=== PATIENT | female | born 1960 | race African-American/Black ===

== ENCOUNTER 2019-11-17 12:55 | Inpatient (IN) | payer OTHER ==
--- NOTE | 2019-11-17 13:13 | ED ---
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 She denies any overt fevers chills or sweats at this time is cough and exertional dyspnea and dyspnea at rest. She has no known history of heart or lung disease. No other major medical issues except fibromyalgia. She is a nonsmoker. He does admit she has many much last week. She had noticed her pulse ox was high 80s approximately 88 at home per [facility] this did improve to 98 on 3 L of oxygen. She also has some nausea. His blood pressure was 90/50 she was given small amount of IV fluid a corrected to 110/70 MD Complaint: shortness of breath, cough - Related Data Allergies Allergy/AdvReac Type Severity Reaction Status Date / Time No Known Allergies Allergy Verified 11/17/19 13:07 Review of Systems ROS Statement: Those systems with pertinent positive or pertinent negative responses have been documented in the HPI. ROS Other: All systems not noted in ROS Statement are negative. General Exam - General Exam Comments Initial Comments: This is a well-developed asthenic appearing female who is awake alert oriented 3 General appearance: alert, in no apparent distress Head exam: Present: atraumatic, normocephalic, normal inspection Eye exam: Present: normal appearance, PERRL, EOMI. Absent: scleral icterus, conjunctival injection, periorbital swelling ENT exam: Present: normal exam, mucous membranes moist Neck exam: Present: normal inspection. Absent: tenderness, meningismus, lymphadenopathy Respiratory exam: Present: normal lung sounds bilaterally. Absent: respiratory distress, wheezes, rales, rhonchi, stridor Cardiovascular Exam: Present: regular rate, normal rhythm, normal heart sounds. Absent: systolic murmur, diastolic murmur, rubs, gallop, clicks GI/Abdominal exam: Present: soft, normal bowel sounds. Absent: distended, tenderness, guarding, rebound, rigid Extremities exam: Present: normal inspection, full ROM, normal capillary refill. Absent: tenderness, pedal edema, joint swelling, calf tenderness Back exam: Present: normal inspection Neurological exam: Present: alert, oriented X3, CN II-XII intact Psychiatric exam: Present: normal affect, normal mood Skin exam: Present: warm, dry, intact, normal color. Absent: rash Course Vital Signs 11/17/19 11/17/19 11/17/19 13:07 13:20 13:35 Temperature 100.4 F H Pulse Rate 85 74 Respiratory 20 20 18 Rate Blood Pressure 111/78 105/63 O2 Sat by Pulse 97 95 Oximetry Medical Decision Making - Medical Decision Making I did review the materials the imaging as well as the lab work. The patient's lab tests from the elbow department was reviewed and is positive for covid-19. I did discuss the case with Dr. Nick the patient will be admitted with consultation by infectious disease. Patient is maintained her respiratory status at this time. - Lab Data Result diagrams: 11/17/19 13:17 11/17/19 13:17 Lab Results 11/17/19 11/17/19 11/17/19 Range/Units 13:17 13:17 13:17 WBC 4.6 (3.8-10.6) k/uL RBC 4.65 (3.80-5.40) m/uL Hgb 13.2 (11.4-16.0) gm/dL Hct 41.6 (34.0-46.0) % MCV 89.5 (80.0-100.0) fL MCH 28.4 (25.0-35.0) pg MCHC 31.7 (31.0-37.0) g/dL RDW 12.3 (11.5-15.5) % Plt Count 178 (150-450) k/uL Neutrophils % 70 % Lymphocytes % 22 % Monocytes % 5 % Eosinophils % 0 % Basophils % 0 % Neutrophils # 3.2 (1.3-7.7) k/uL Lymphocytes # 1.0 (1.0-4.8) k/uL Monocytes # 0.2 (0-1.0) k/uL Eosinophils # 0.0 (0-0.7) k/uL Basophils # 0.0 (0-0.2) k/uL PT 9.4 (9.0-12.0) sec INR 0.9 (<1.2) APTT 27.0 (22.0-30.0) sec D-Dimer 0.72 H (<0.60) mg/L FEU Sodium 130 L (137-145) mmol/L Potassium 3.9 (3.5-5.1) mmol/L Chloride 95 L (98-107) mmol/L Carbon Dioxide 26 (22-30) mmol/L Anion Gap 9 mmol/L BUN 11 (7-17) mg/dL Creatinine 0.85 (0.52-1.04) mg/dL Est GFR (CKD-EPI)AfAm 86 (>60 ml/min/1.73 sqM) Est GFR (CKD-EPI)NonAf 75 (>60 ml/min/1.73 sqM) Glucose 99 (74-99) mg/dL Plasma Lactic Acid Maurice (0.7-2.0) mmol/L Calcium 8.8 (8.4-10.2) mg/dL Magnesium 2.1 (1.6-2.3) mg/dL Total Bilirubin 0.6 (0.2-1.3) mg/dL AST 76 H (14-36) U/L ALT 42 H (4-34) U/L Alkaline Phosphatase 69 (38-126) U/L Lactate Dehydrogenase 669 H (313-618) U/L C-Reactive Protein 19.0 H (<10.0) mg/L Total Protein 7.0 (6.3-8.2) g/dL Albumin 3.8 (3.5-5.0) g/dL 11/17/19 Range/Units 13:17 WBC (3.8-10.6) k/uL RBC (3.80-5.40) m/uL Hgb (11.4-16.0) gm/dL Hct (34.0-46.0) % MCV (80.0-100.0) fL MCH (25.0-35.0) pg MCHC (31.0-37.0) g/dL RDW (11.5-15.5) % Plt Count (150-450) k/uL Neutrophils % % Lymphocytes % % Monocytes % % Eosinophils % % Basophils % % Neutrophils # (1.3-7.7) k/uL Lymphocytes # (1.0-4.8) k/uL Monocytes # (0-1.0) k/uL Eosinophils # (0-0.7) k/uL Basophils # (0-0.2) k/uL PT (9.0-12.0) sec INR (<1.2) APTT (22.0-30.0) sec D-Dimer (<0.60) mg/L FEU Sodium (137-145) mmol/L Potassium (3.5-5.1) mmol/L Chloride (98-107) mmol/L Carbon Dioxide (22-30) mmol/L Anion Gap mmol/L BUN (7-17) mg/dL Creatinine (0.52-1.04) mg/dL Est GFR (CKD-EPI)AfAm (>60 ml/min/1.73 sqM) Est GFR (CKD-EPI)NonAf (>60 ml/min/1.73 sqM) Glucose (74-99) mg/dL Plasma Lactic Acid Maurice 1.2 (0.7-2.0) mmol/L Calcium (8.4-10.2) mg/dL Magnesium (1.6-2.3) mg/dL Total Bilirubin (0.2-1.3) mg/dL AST (14-36) U/L ALT (4-34) U/L Alkaline Phosphatase (38-126) U/L Lactate Dehydrogenase (313-618) U/L C-Reactive Protein (<10.0) mg/L Total Protein (6.3-8.2) g/dL Albumin (3.5-5.0) g/dL - EKG Data -: EKG Interpreted by Me EKG shows normal: sinus rhythm EKG Comments: Sinus rhythm rate 74. Interval 160 QRS duration 80 QT/QTC 362/401. This is a normal-appearing EKG - Radiology Data Radiology results: report reviewed (I did review the imaging and reports is evidence of a right lower lobe as well as left lower lobe and left upper lobe infiltrate.), image reviewed Disposition Clinical Impression: COVID-19 virus infection, Pneumonia, Hypoxemia, Febrile illness, acute Disposition: ADMITTED IP TO THIS [facility] Condition: Fair Referrals: Amaury Cox MD [Primary Care Provider] - 1-2 days
[2019-11-17 13:56] LABS: Basophils % (A) 0 %; Eosinophils % (A) 0 %; HCT 41.6 % (34.0-46.0); HGB 13.2 gm/dL (11.4-16.0); Lymphocytes % (A) 22 %; MCH 28.4 pg (25.0-35.0); MCHC 31.7 g/dL (31.0-37.0); MCV 89.5 fL (80.0-100.0); Mean Platelet Volume 8.8; Monocytes # (A) 0.2 k/uL (0-1.0); Monocytes % (A) 5 %; Neutrophils # (A) 3.2 k/uL (1.3-7.7); Neutrophils % (A) 70 %; Platelet Count 178 k/uL (150-450); RBC 4.65 m/uL (3.80-5.40); RDW 12.3 % (11.5-15.5); WBC 4.6 k/uL (3.8-10.6)
[2019-11-17 13:57] LABS: INR 0.9 (<1.2); Prothrombin Time 9.4 sec (9.0-12.0)
[2019-11-17 13:59] LABS: D-Dimer 0.72 mg/L FEU (<0.60)
[2019-11-17 14:05] LABS: Albumin 3.8 g/dL (3.5-5.0); Calcium 8.8 mg/dL (8.4-10.2); Magnesium 2.1 mg/dL (1.6-2.3); Potassium 3.9 mmol/L (3.5-5.1); Total Bilirubin 0.6 mg/dL (0.2-1.3)
--- NOTE | 2019-11-17 14:06 | XR ---
EXAMINATION TYPE: XR chest 1V portable DATE OF EXAM: 11/17/2019 Comparison: None Clinical History: 59-year-old female shortness of breath, positive laboratory study, Suspected COVID- 19 pneumonia Findings: Part borderline enlarged. Aorta and pulmonary vasculature within normal limits. Mild interstitial den sity. Some patchy opacity peripheral left mid and lower lung and right base. Impression: Mild patchy mid and lower lung infiltrates, left greater than right. Atypical pneumonia not excluded.
[2019-11-17] MEDS ORDERED: cefTRIAXone IN SWFI 1,000 MG/10 ML SYRINGE IVP STA (14:17)
[2019-11-17] MEDS ORDERED: PNEUMONIA PROTOCOL UTILIZED 1 EACH MISC PO PRN (14:54)
[2019-11-17] MEDS ORDERED: SODIUM CHLORIDE 0.9% 1,000 ML IV SCH (15:00)
[2019-11-17] MEDS: ALBUTEROL HFA INHALER INHALATION SCH ×3 (16:08→23:27)
[2019-11-17] MEDS: AZITHROMYCIN 500 MG in SODIUM CHLORIDE 0.9% 250 ML IVPB SCH (16:12)
[2019-11-17] MEDS: HYDROXYCHLOROQUINE SULFATE 200 MG TAB PO SCH ×2 (16:12→23:23)
[2019-11-17 18:59] LABS: Ferritin 229.9 ng/mL (10.0-291.0)
--- NOTE | 2019-11-17 22:36 | CONS ---
CONSULTATION DATE OF SERVICE: 11/17/2019 REASON FOR CONSULTATION: COVID-19 pneumonia. 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 The patient was diagnosed with COVID-19 infection on Thursday and she was advised self-isolation at home, not prescribed any medication. The patient is now presenting to [facility] with chief complaints of increasing shortness of breath that started last night and this morning was so severe that the patient did come into the hospital. The patient has been complaining of feeling rundown for the last 3 days. The patient did have low-grade fever and chills. The patient did have a cough which has been mild to moderate in intensity, mostly dry in nature. She has been complaining of feeling nauseated but no vomiting. No abdominal pain. She did have some diarrhea. With these symptoms the patient presented to [facility]. On arrival in the ER the patient did have a low-grade fever of 100.4. She had a normal white count with no lymphopenia. Creatinine was 0.85. Liver enzymes were mildly elevated. LDH was 669. CRP was 19. The patient did have a chest x-ray which showed bilateral lower lobe interstitial infiltrate with atypical pneumonia not excluded. The patient has been admitted to hospital for acute COVID-19 pneumonia. Infectious Disease was consulted for further management of her antibiotic therapy. REVIEW OF SYSTEMS: Positive points have been mentioned in HPI. Rest of the systems are negative. PAST MEDICAL HISTORY: Significant for fibromyalgia, gastroesophageal reflux disease. PAST SURGICAL HISTORY: No major surgery. SOCIAL HISTORY: No history of smoking. Occasionally drinks. Works as an RN at [employer]. FAMILY HISTORY: No pertinent findings were noted. ALLERGIES: NARCOTICS. MEDICATIONS: Current medications include Ventolin, Zithromax, Rocephin, Plaquenil, IV fluid. PHYSICAL EXAMINATION: Blood pressure 100/66, pulse of 76, temperature 97.9, T-max 100.4. She is 96% on room air. General description is a middle-aged female lying in bed in no distress. No tachypnea or accessory muscle of respiration use. HEENT examination shows no pallor or scleral icterus. Oral mucosa membrane is dry. No pharyngeal erythema or thrush. NECK: Trachea is central. No thyromegaly. LUNGS: Unlabored breathing. Some coarse breath sounds at the base. No wheeze. HEART: S1, S2. Regular rate and rhythm. ABDOMEN: Soft. No tenderness. EXTREMITIES: No edema of the feet. SKIN EXAMINATION: No rash or mass palpable. Neurologically the patient is awake, alert, oriented x3. Mood and affect normal. LABS: Hemoglobin is 13.2, white count 4.6. D-dimer is 0.72. BUN of 11, creatinine 0.85. Electrolytes have been normal. Liver enzymes mildly elevated. LDH and CRP elevated. DIAGNOSTIC IMPRESSION AND PLAN: Patient presented to hospital with a fever, increasing shortness of breath, dry cough in this patient who has been diagnosed with acute COVID-19 pneumonia in this patient who has high risk factors, working as an RN at one of the hospitals in the [employer], with elevated D-dimer, LDH, CRP, likely because of acute COVID-19 pneumonia. PLAN: 1. The patient will be treated with Plaquenil and Zithromax per protocol. 2. Add Lovenox. 3. Hep-Lock IV fluid. The patient will be kept in negative balance. 4. Will add Tigan for her nausea and symptomatic treatment. 5. We will follow her clinical condition and further adjust her medication if needed. Thank you for this consultation. Will follow this patient along with you. SUMI / YINGN: [id number] / JO
--- NOTE | 2019-11-17 23:13 | HP ---
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 She has cough and congestion over the past 3 days. She was tested 3 days ago. 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 She sweats, coughs, has exertional dyspnea and at rest. She has fibromyalgia. No smoking. No other medications at home. She was found to be 88% oxygen at home and up to 98% on 3 L. She has some nausea. Blood pressure is little bit low at 90/50. With IV fluids it went up to 110/70. ALLERGIES: NEGATIVE. Fourteen-point review of systems negative except for HPI. PHYSICAL EXAMINATION: She is a well developed normal-looking -[place] female. PSYCH: Alert and oriented x3. Giving appropriate answers. She is holding a mask over her mouth. She is coughing into it over and over again. Lungs show some scattered wheeze and rhonchi. No rales. HEART: S1, S2. Mild tachycardia. ABDOMEN: Soft. EXTREMITIES: No edema. Back is normal. PSYCH: Fair mood and affect. NEUROLOGIC: Alert and oriented x3. She is positive for COVID-19. Her chest x-ray looks like COVID pneumonia. Sodium 130, potassium 3.9, BUN 11, creatinine 0.85. White count 4.6, hemoglobin 13.2. D-dimer 0.72. Liver enzymes are high at 76 and 42. LDH high at 669, CRP 19. Start Plaquenil, azithromycin, zinc. Infectious disease consult. Possible pulmonary consult, depending on how patient does. MMODL / IJN: [id number] /
[2019-11-17] MEDS: ENOXAPARIN 40 MG/0.4 ML SYRINGE SQ SCH (23:23)
[2019-11-17] MEDS: ZINC SULFATE 220 MG CAP PO SCH (23:23)
[2019-11-18] MEDS: ONDANSETRON 4 MG/2 ML VIAL IVP PRN ×3 (02:13→18:59)
[2019-11-18] MEDS: ALBUTEROL HFA INHALER INHALATION SCH ×6 (05:37→23:31)
[2019-11-18] MEDS: HYDROXYCHLOROQUINE SULFATE 200 MG TAB PO SCH ×2 (07:53→21:12)
[2019-11-18] MEDS: ZINC SULFATE 220 MG CAP PO SCH (07:53)
[2019-11-18] MEDS: ENOXAPARIN 40 MG/0.4 ML SYRINGE SQ SCH ×2 (07:53→21:12)
[2019-11-18 08:04] LABS: Basophils % (A) 0 %; Eosinophils % (A) 0 %; HCT 38.6 % (34.0-46.0); Lymphocytes # (A) 1.1 k/uL (1.0-4.8); Lymphocytes % (A) 36 %; MCH 28.2 pg (25.0-35.0); MCHC 31.1 g/dL (31.0-37.0); MCV 90.6 fL (80.0-100.0); Mean Platelet Volume 8.5; Monocytes # (A) 0.2 k/uL (0-1.0); Monocytes % (A) 6 %; Neutrophils # (A) 1.7 k/uL (1.3-7.7); Neutrophils % (A) 54 %; Platelet Count 169 k/uL (150-450); RBC 4.26 m/uL (3.80-5.40); RDW 12.6 % (11.5-15.5); WBC 3.1 k/uL (3.8-10.6)
[2019-11-18 08:15] LABS: Albumin 3.3 g/dL (3.5-5.0); Potassium 3.4 mmol/L (3.5-5.1); Total Bilirubin 0.4 mg/dL (0.2-1.3); Total Protein 6.3 g/dL (6.3-8.2)
--- NOTE | 2019-11-18 08:34 | XR ---
EXAMINATION TYPE: XR chest 1V portable DATE OF EXAM: 11/18/2019 COMPARISON: Prior chest x-ray 11/17/2019 HISTORY: Pneumonia TECHNIQUE: Single frontal view of the chest is obtained. FINDINGS: Patient is rotated. Cardiac mediastinal silhouette is stable. Some patchy density persists at the lung bases. No evident pneumothorax or pleural effusion. There are overlying cardiac leads. IMPRESSION: Findings are similar to prior exam. Consider pneumonia, atelectasis, follow-up PA and la teral chest x-ray when stable.
[2019-11-18 08:40] LABS: C Reactive Protein 21.4 mg/L (<10.0)
[2019-11-18] MEDS: guaiFENesin SYRUP 100MG/5ML 200 MG/10 ML CUP PO PRN (12:18)
[2019-11-18] MEDS: AZITHROMYCIN 500 MG in SODIUM CHLORIDE 0.9% 250 ML IVPB SCH (15:30)
[2019-11-18 16:13] LABS: Ferritin 284.7 ng/mL (10.0-291.0)
[2019-11-18] MEDS ORDERED: Potassium Replacement Protocol 1 EACH MISC MISCELLANE PRN ×2 (16:36→18:13)
[2019-11-18] MEDS: POTASSIUM CHLORIDE ER 20 MEQ TAB.ER PO SCH ×2 (16:45→17:39)
--- NOTE | 2019-11-18 16:51 | PN ---
PROGRESS NOTE DATE OF SERVICE: 11/18/2019 REASON FOR FOLLOWUP: Acute COVID-19 pneumonia. INTERVAL HISTORY: The patient did spike a low-grade fever of 100.2 this afternoon and seen early this afternoon. The patient overall feeling better compared to yesterday. She is breathing comfortably. Still have occasional dry cough. No chest pain. No nausea, vomiting. No abdominal pain, no diarrhea. PHYSICAL EXAMINATION: Blood pressure 120/70 with a pulse of 93, temperature 100.2. She is 94% on room air. General description is a middle-aged female, up in the bed in no distress. RESPIRATORY SYSTEM: Unlabored breathing. Coarse breath sounds at the bases. No wheeze. HEART: S1, S2. Regular rhythm. ABDOMEN: Soft, no tenderness. LABS: Hemoglobin is 12, white count 3.1. BUN of 9, creatinine 0.85. LDH and CRP still elevated. The patient did have a chest x-ray repeat similar to prior exam with no worsening. DIAGNOSTIC IMPRESSION AND PLAN: Patient with acute COVID-19 pneumonia, patient seemed to have shown some clinical improvement , to conitinue with plaquenil.steroids,lovenox and monitor clinical course closely. MMODL / IJN: [id number] / JO
--- NOTE | 2019-11-18 18:24 | P.PN ---
Subjective Progress Note Date: 11/18/19 This is a 59-year-old female admitted with: This 19 pneumonia. Slowly improving, nonproductive cough. Maintaining O2 sats of low to mid 90s on room air. Chest x-ray reporting similar to prior with no evident pneumothorax or pleural effusion. T-max 100.2. Potassium 3.4. Denies chest pain, palpitations or increased shortness of breath. Objective - Vital Signs Vital signs: Vital Signs Temp 100.2 F H 11/18/19 14:35 Pulse 93 11/18/19 14:35 Resp 18 11/18/19 14:35 BP 112/71 11/18/19 14:35 Pulse Ox 94 L 11/18/19 14:35 Intake & Output 11/17/19 11/18/19 11/18/19 18:59 06:59 18:59 Intake Total 300 360 Output Total 1 Balance 299 360 Weight 77.564 kg Intake: Oral 300 360 Output: Urine/Stool Mix 1 Other: # Voids 1 1 # Bowel Movements 1 - Exam PHYSICAL EXAM: VITAL SIGNS: As above GENERAL: Sitting up in bed, no acute distress HEENT: Conjunctivae normal. eyes normal. Oral mucosa moist NECK: No JVD. No thyroid enlargement. No LNs CARDIOVASCULAR: S1, S2 regular.. No murmur RESPIRATION: Breath sounds diminished in the bases. No rhonchi or crackles. No wheezing. ABDOMEN: Soft, nontender . No guarding. no masses palpable.Bowel sounds heard. LEGS: No edema. no swelling PSYCHIATRY: Alert and oriented X3, mood and affect normal. NERVOUS SYSTEM: Cranial N 2-12 grossly normal. Moves all 4 limbs. Diffuse weakness, No focal deficits. Strength and sensation grossly intact.. Skin: no lesions, no rash - Labs CBC & Chem 7: 11/18/19 07:33 11/18/19 07:33 Labs: Abnormal Lab Results - Last 24 Hours (Table) 11/18/19 11/18/19 Range/Units 07:33 07:33 WBC 3.1 L (3.8-10.6) k/uL Sodium 134 L (137-145) mmol/L Potassium 3.4 L (3.5-5.1) mmol/L Calcium 8.0 L (8.4-10.2) mg/dL AST 63 H (14-36) U/L ALT 40 H (4-34) U/L Lactate Dehydrogenase 656 H (313-618) U/L C-Reactive Protein 21.4 H (<10.0) mg/L Albumin 3.3 L (3.5-5.0) g/dL Microbiology - Last 24 Hours (Table) 11/17/19 13:17 Blood Culture - Preliminary Blood No Growth after 24 hours Assessment and Plan Assessment: Acute, Covid 19 pneumonia Acute hypoxic respiratory failure secondary to the above Hypokalemia Gastroesophageal reflux disease Anxiety fibromyalgia Plan: Continue on current medication regime, monitoring and symptomatic treatment. Continue on Plaquenil, Zithromax, Rocephin, as per infectious disease. Maintain IV steroids. Potassium replacement protocol ordered. Close monitoring of electrolyte. Repeat labs ordered for a.m. blood cultures in progress. The impression and plan of care has been dictated as directed. : I performed a history and examination of this patient, discussed the same with the dictator. I agree with the dictator's note ,documented as a scribe. Any additional findings or plans will be noted.
[2019-11-18 20:56] LABS: Glucose,Whole Blood 113 mg/dL (75-99)
[2019-11-18] MEDS: INSULIN ASPART (NovoLOG) 100 UNIT/ML VIAL SQ SCH (21:07)
[2019-11-18] MEDS: methylPREDNISolone SOD SUCCI 125 MG/2 ML VIAL IV SCH (21:12)
[2019-11-19] MEDS: guaiFENesin SYRUP 100MG/5ML 200 MG/10 ML CUP PO PRN ×2 (03:15→09:29)
[2019-11-19 06:53] LABS: Glucose,Whole Blood 126 mg/dL (75-99)
[2019-11-19] MEDS: ALBUTEROL HFA INHALER INHALATION SCH ×6 (09:01→23:24)
[2019-11-19] MEDS: INSULIN ASPART (NovoLOG) 100 UNIT/ML VIAL SQ SCH ×4 (09:10→21:04)
[2019-11-19] MEDS ORDERED: guaiFENesin-DM 100-10MG/5ML 10 ML CUP PO PRN (09:17)
[2019-11-19] MEDS: methylPREDNISolone SOD SUCCI 125 MG/2 ML VIAL IV SCH ×2 (09:28→21:25)
[2019-11-19] MEDS: HYDROXYCHLOROQUINE SULFATE 200 MG TAB PO SCH ×2 (09:29→21:26)
[2019-11-19] MEDS: ENOXAPARIN 40 MG/0.4 ML SYRINGE SQ SCH ×2 (09:29→21:26)
[2019-11-19] MEDS: ZINC SULFATE 220 MG CAP PO SCH (09:29)
[2019-11-19] MEDS: ONDANSETRON 4 MG/2 ML VIAL IVP PRN ×2 (09:38→16:48)
[2019-11-19 11:40] LABS: African American GFR (CKD) >90 (>60 ml/min/1.73 sqM); Anion Gap 7 mmol/L; Blood Urea Nitrogen 8 mg/dL (7-17); Carbon Dioxide 28 mmol/L (22-30); Chloride 98 mmol/L (98-107); Glucose 147 mg/dL (74-99); Non-African American GFR(CKD) >90 (>60 ml/min/1.73 sqM); Potassium 4.1 mmol/L (3.5-5.1); Sodium 133 mmol/L (137-145)
[2019-11-19 11:51] LABS: Glucose,Whole Blood 137 mg/dL (75-99)
[2019-11-19] MEDS: CALCIUM CARBONATE 500 MG CHEWABLE PO PRN ×2 (13:19→21:26)
--- NOTE | 2019-11-19 15:50 | P.CNPUL ---
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 She denies any overt fevers chills or sweats at this time is cough and exertional dyspnea and dyspnea at rest. She has no known history of heart or lung disease. No other major medical issues except fibromyalgia. She is a nonsmoker. He does admit she has many much last week. She had noticed her pulse ox was high 80s patient has the problem associated with ongoing cough however responded well with codeine, patient has been evaluated by infectious disease services as well spiked temperature 100.2 saturation remains stable at 94% now slowly appeared to be improving Review of Systems All systems: negative Past Medical History Past Medical History: Fibromyalgia, GERD/Reflux History of Any Multi-Drug Resistant Organisms: None Reported Additional Past Surgical History / Comment(s): microdiscectomy Past Psychological History: Anxiety Smoking Status: Never smoker Past Alcohol Use History: Occasional Past Drug Use History: None Reported - Past Family History Mother Family Medical History: CVA/TIA Medications and Allergies Home Medications Medication Instructions Recorded Confirmed Type Acetaminophen Tab [Tylenol] 650 mg PO Q4H PRN 11/17/19 11/17/19 History Ondansetron HCl [Zofran] 4 mg PO TID PRN 11/17/19 11/17/19 History guaiFENesin SYRUP 100MG/5ML 200 mg PO Q6H PRN 11/17/19 11/17/19 History [Robitussin] Allergies Allergy/AdvReac Type Severity Reaction Status Date / Time narcotics AdvReac Severe Nausea & Uncoded 11/17/19 15:44 Vomiting Physical Exam Vitals: Vital Signs Temp Pulse Pulse Resp BP Pulse Ox 11/19/19 07:00 98.1 F 99 18 99/73 93 L 11/19/19 04:00 20 11/19/19 02:57 98.7 F 76 20 109/67 91 L 11/18/19 23:36 20 11/18/19 22:49 98.2 F 82 20 108/68 92 L 11/18/19 19:11 18 11/18/19 19:00 98 F 78 20 102/67 95 Intake and Output 11/19/19 11/19/19 11/19/19 06:59 14:59 22:59 Intake Total 100 Balance 100 Intake: Oral 100 Other: # Voids 1 - Constitutional General appearance: average body habitus, disheveled - EENT Ears: bilateral: normal - Neck Neck: normal ROM Carotids: bilateral: upstroke normal - Respiratory Respiratory: bilateral: wheezing (Fine rather coarse breath sounds) - Cardiovascular Rhythm: regular Heart sounds: normal: S1, S2 - Gastrointestinal General gastrointestinal: normal bowel sounds - Neurologic Neurologic: CNII-XII intact - Musculoskeletal Musculoskeletal: gait normal, generalized weakness, strength equal bilaterally - Psychiatric Psychiatric: A&O x's 3, appropriate affect, intact judgment & insight Results - Laboratory Findings CBC and BMP: 11/18/19 07:33 11/19/19 11:11 PT/INR, D-dimer PT 9.4 sec (9.0-12.0) 11/17/19 13:17 INR 0.9 (<1.2) 11/17/19 13:17 D-Dimer 0.72 mg/L FEU (<0.60) H 11/17/19 13:17 Abnormal lab findings: Abnormal Labs 11/17/19 11/17/19 11/18/19 13:17 13:17 07:33 WBC D-Dimer 0.72 H Sodium 130 L 134 L Potassium 3.4 L Chloride 95 L Glucose POC Glucose (mg/dL) Calcium 8.0 L AST 76 H 63 H ALT 42 H 40 H Lactate Dehydrogenase 669 H 656 H C-Reactive Protein 19.0 H 21.4 H Albumin 3.3 L 11/18/19 11/18/19 11/19/19 07:33 20:49 06:52 WBC 3.1 L D-Dimer Sodium Potassium Chloride Glucose POC Glucose (mg/dL) 113 H 126 H Calcium AST ALT Lactate Dehydrogenase C-Reactive Protein Albumin 11/19/19 11/19/19 11:11 11:49 WBC D-Dimer Sodium 133 L Potassium Chloride Glucose 147 H POC Glucose (mg/dL) 137 H Calcium AST ALT Lactate Dehydrogenase C-Reactive Protein Albumin - Diagnostic Findings Chest x-ray: report reviewed, image reviewed (Finding as noted above, patchy bilateral infiltrate noted on admit and yesterday's x-ray remains stable) Assessment and Plan Assessment: Covid 19 pneumonia Acute hypoxic respiratory failure Possible associated community-acquired pneumonia Plan: Continue supportive care Continue broad-spectrum antibiotics Follow clinical course closely Continue to monitor oxygenation closely Time with Patient: Greater than 30
[2019-11-19] MEDS: AZITHROMYCIN 500 MG TAB PO SCH (16:48)
[2019-11-19 16:54] LABS: Glucose,Whole Blood 147 mg/dL (75-99)
[2019-11-19 20:52] LABS: Glucose,Whole Blood 128 mg/dL (75-99)
[2019-11-19] MEDS ORDERED: PROMETHAZINE INJ 25 MG in SODIUM CHLORIDE 0.9% 50 ML IVPB PRN (22:00)
--- NOTE | 2019-11-19 23:47 | PN ---
PROGRESS NOTE DATE OF SERVICE: 11/19/2019 REASON FOR FOLLOW UP: Acute COVID-19 pneumonia. INTERVAL HISTORY: The patient is currently afebrile. She was breathing slightly comfortably at time of my evaluation. The patient denies any chest pain. Still has some dry cough. No nausea, vomiting, no abdominal pain or diarrhea. PHYSICAL EXAMINATION: Blood pressure 110/66, pulse of 76, temperature 97.7. She is 93% on 2 L nasal cannula. General description is a middle-aged female lying in bed in no distress. Respiratory system: Unlabored breathing. Some fine crackles at the base bilaterally. No wheeze. HEART: S1, S2. Regular rate and rhythm. ABDOMEN: Soft. No tenderness. LABS: BUN of 8, creatinine 0.71. Blood culture has been negative. DIAGNOSTIC IMPRESSION AND PLAN: Patient with acute COVID-19 pneumonia. The patient is currently covered with Zithromax, Plaquenil, Solu-Medrol and zinc to continue and we will monitor her clinical course closely. Continue supportive care. MMODL / IJN: [id number] /
--- NOTE | 2019-11-20 00:19 | PN ---
PROGRESS NOTE 59-year-old white female, Covid-19 pneumonia. Having no chest pain, continue with congestive cough for which Codeine is taking care of it. Continue with current treatment. Follow up next 24 to 48 hours. Continue chloroquine and azithromycin. O2 sats are in the low 90s on room air. Continue current treatments for Covid-19 pneumonia and acute hypoxemic respiratory distress. Follow up in the next 24-48 hours. MMODL / IJN: [id number] /
[2019-11-20 06:56] LABS: Glucose,Whole Blood 116 mg/dL (75-99)
[2019-11-20] MEDS: ALBUTEROL HFA INHALER INHALATION SCH ×5 (08:28→19:12)
[2019-11-20] MEDS: INSULIN ASPART (NovoLOG) 100 UNIT/ML VIAL SQ SCH ×4 (08:39→20:14)
[2019-11-20] MEDS: ZINC SULFATE 220 MG CAP PO SCH (08:48)
[2019-11-20] MEDS: ENOXAPARIN 40 MG/0.4 ML SYRINGE SQ SCH ×2 (08:48→20:36)
[2019-11-20] MEDS: HYDROXYCHLOROQUINE SULFATE 200 MG TAB PO SCH ×2 (08:48→20:36)
[2019-11-20] MEDS: methylPREDNISolone SOD SUCCI 125 MG/2 ML VIAL IV SCH ×2 (08:48→20:36)
[2019-11-20] MEDS: CALCIUM CARBONATE 500 MG CHEWABLE PO PRN (08:55)
--- NOTE | 2019-11-20 09:47 | XR ---
EXAMINATION TYPE: XR chest 1V portable DATE OF EXAM: 11/20/2019 HISTORY: eval pna. REFERENCE: Previous study dated 11/18/2019 there is an enlarging left lower lobe infiltrate. There is platelike atelectasis in the right upper lobe. Heart is mildly prominent. I could not exclude a trace effusion on the left.. FINDINGS: Worsening left-sided pneumonia. IMPRESSION:
[2019-11-20] MEDS: guaiFENesin-DM 100-10MG/5ML 10 ML CUP PO SCH ×3 (09:48→20:36)
[2019-11-20 11:51] LABS: Glucose,Whole Blood 114 mg/dL (75-99)
[2019-11-20 13:13] LABS: C Reactive Protein 6.5 mg/L (<10.0)
--- NOTE | 2019-11-20 13:25 | P.PN ---
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 She denies any overt fevers chills or sweats at this time is cough and exertional dyspnea and dyspnea at rest. She has no known history of heart or lung disease. No other major medical issues except fibromyalgia. She is a nonsmoker. He does admit she has many much last week. She had noticed her pulse ox was high 80s patient has the problem associated with ongoing cough however responded well with codeine, patient has been evaluated by infectious disease services as well spiked temperature 100.2 saturation remains stable at 94% now slowly appeared to be improving Objective - Vital Signs Vital signs: Vital Signs Temp 97.8 F 11/20/19 07:00 Pulse 87 11/20/19 07:00 Resp 19 11/20/19 07:00 BP 114/71 11/20/19 07:00 Pulse Ox 90 L 11/20/19 07:00 Intake & Output 11/19/19 11/20/19 11/20/19 18:59 06:59 18:59 Other: # Voids 2 # Bowel Movements 1 - Exam - Constitutional General appearance: average body habitus, disheveled - EENT Ears: bilateral: normal - Neck Neck: normal ROM Carotids: bilateral: upstroke normal - Respiratory Respiratory: bilateral: wheezing (Fine rather coarse breath sounds) - Cardiovascular Rhythm: regular Heart sounds: normal: S1, S2 - Gastrointestinal General gastrointestinal: normal bowel sounds - Neurologic Neurologic: CNII-XII intact - Musculoskeletal Musculoskeletal: gait normal, generalized weakness, strength equal bilaterally - Psychiatric Psychiatric: A&O x's 3, appropriate affect, intact judgment & insight Due to highly infectious nature and limit limited availability of PPE. PE relied on nursing exam - Labs CBC & Chem 7: 11/18/19 07:33 11/19/19 11:11 Labs: Abnormal Lab Results - Last 24 Hours (Table) 11/19/19 11/19/19 11/20/19 Range/Units 16:53 20:50 06:55 POC Glucose (mg/dL) 147 H 128 H 116 H (75-99) mg/dL Lactate Dehydrogenase (313-618) U/L 11/20/19 11/20/19 Range/Units 11:50 11:57 POC Glucose (mg/dL) 114 H (75-99) mg/dL Lactate Dehydrogenase 837 H (313-618) U/L Microbiology - Last 24 Hours (Table) 11/17/19 13:17 Blood Culture - Preliminary Blood No Growth after 48 hours Assessment and Plan Assessment: Slow worsening of pneumonia Covid 19 pneumonia Acute hypoxic respiratory failure Possible associated community-acquired pneumonia Plan: We will initiate supplemental oxygen Continue cough medication Chest x-ray reviewed Inflammation markers have been ordered Continue supportive care Continue broad-spectrum antibiotics Follow clinical course closely Continue to monitor oxygenation closely May need to discontinue Solu-Medrol we'll discuss with Dr. Fowler Time with Patient: Greater than 30
[2019-11-20 16:48] LABS: Glucose,Whole Blood 105 mg/dL (75-99)
[2019-11-20] MEDS: AZITHROMYCIN 500 MG TAB PO SCH (17:32)
[2019-11-20 20:14] LABS: Glucose,Whole Blood 107 mg/dL (75-99)
[2019-11-20] MEDS: PIPERACILLIN-TAZOBACTAM 3.375 GM in SODIUM CHLORIDE 0.9% 100 ML IVPB SCH (23:03)
--- NOTE | 2019-11-21 00:12 | PN ---
PROGRESS NOTE This is a 59-year-old white female with IV Solu-Medrol, IV Rocephin, IV azithromycin, Robitussin, Plaquenil. She has had severe problem with coughing and congestion for which cough syrup has been ordered. Her LDH is 837, C-reactive protein 6.5. Her white count is 3.1. She has some mild leukopenia. She is 94% oxygen on 2 L. LUNGS: Show scattered rhonchi and wheeze. HEMATOLOGY: Negative Homans. CARDIOVASCULAR: S1, S2. Chest x-ray today shows worsening left-sided pneumonia, possibly switch her antibiotics around for the left lower lobe infiltrate. Prognosis extremely guarded. Hopefully she will not end up on the vent. Continue current treatment. MMODL / IJN: [id number] /
[2019-11-21] MEDS: ALBUTEROL HFA INHALER INHALATION SCH ×6 (00:28→20:24)
--- NOTE | 2019-11-21 02:58 | PN ---
PROGRESS NOTE DATE OF SERVICE: 11/20/2019 REASON FOR FOLLOWUP: Acute COVID-19 pneumonia. INTERVAL HISTORY: The patient is currently afebrile. Patient is breathing slightly comfortably after the nasal cannula oxygen was applied. The patient denies having chest pain. Cough is mostly dry in nature with occasional yellow sputum. No nausea, no vomiting. No abdominal pain. No diarrhea. PHYSICAL EXAMINATION: Blood pressure 115/74 with a pulse of 92, temperature 98. She is 94% on 2 L nasal cannula. General description is a middle-aged female up in the chair in no distress. RESPIRATORY SYSTEM: Unlabored breathing with decreased intense breath sounds. No wheeze. HEART: S1, S2. Regular rate and rhythm. ABDOMEN: Soft, no tenderness. LABS: Blood culture has been negative. D-dimer was normal. DIAGNOSTIC IMPRESSION AND PLAN: Patient with acute COVID-19 pneumonia. This patient is currently covered with Plaquenil, Zinc, Solu-Medrol, Lovenox. Zosyn has been added with concern for possible secondary bacterial pneumonia as had some yellow sputum. Sputum culture has been requested and will adjust antibiotic further on the basis of clinical response and culture. Continue supportive care. MMODL / IJN: [id number] / MTDD
[2019-11-21] MEDS: guaiFENesin-DM 100-10MG/5ML 10 ML CUP PO SCH ×2 (03:07→09:10)
[2019-11-21 07:07] LABS: Glucose,Whole Blood 110 mg/dL (75-99)
[2019-11-21] MEDS: INSULIN ASPART (NovoLOG) 100 UNIT/ML VIAL SQ SCH ×4 (07:32→21:55)
[2019-11-21] MEDS ORDERED: guaiFENesin-Coden 100-10MG/5ML 10 ML CUP PO PRN (09:00)
[2019-11-21] MEDS: PIPERACILLIN-TAZOBACTAM 3.375 GM in SODIUM CHLORIDE 0.9% 100 ML IVPB SCH (09:07)
[2019-11-21] MEDS: methylPREDNISolone SOD SUCCI 125 MG/2 ML VIAL IV SCH ×2 (09:10→21:55)
[2019-11-21] MEDS: ZINC SULFATE 220 MG CAP PO SCH (09:11)
[2019-11-21] MEDS: ENOXAPARIN 40 MG/0.4 ML SYRINGE SQ SCH ×2 (09:11→21:54)
[2019-11-21] MEDS: HYDROXYCHLOROQUINE SULFATE 200 MG TAB PO SCH ×2 (09:11→21:55)
--- NOTE | 2019-11-21 09:28 | XR ---
EXAMINATION TYPE: XR chest 1V portable DATE OF EXAM: 11/21/2019 HISTORY: COVID 19 COMPARISON: 11/20/2019 TECHNIQUE: Single view of the chest is submitted. FINDINGS: Demonstrated are scattered senescent parenchymal change. Perihilar and basilar mixed infiltrates persist without significant interval change. The heart is stable. Hilar and mediastinal structures are within normal limits. Degenerative changes are seen of the dorsal spine. IMPRESSION: 1. Perihilar and basilar mixed infiltrates persist without significant interval change.
[2019-11-21] MEDS ORDERED: ACETAMINOPHEN TAB 325 MG TAB PO PRN ×2 (09:47)
[2019-11-21 10:06] LABS: Ferritin 254.2 ng/mL (10.0-291.0)
--- NOTE | 2019-11-21 10:31 | P.CNPUL ---
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 Patient lives in [place], and on 11/07/2019 she presented to the emergency department with complaints of persistent cough, shortness of breath. She denies any overt chills, sweats, dyspnea is exertional and at rest. Patient has no known history of hypertension, heart or chronic lung disease, she is a nonsmoker. No other major medical issues except for fibromyalgia. Does report a pulse ox in the high 80s at around 88% at home. She was placed on supplemental oxygen by the paramedics on the way to the hospital. She reports nausea and vomiting. She reports an episode of syncope at home. Her blood pressure was 90/50 on arrival, she was given a small amount of IV fluid bolus, to which she responded well with improvement in her blood pressure. Chest x-ray showed mild patchy and lower lung infiltrates, left greater than right. Her lab work on admission showed unremarkable CBC, no signs of leukocytosis, or lymphocytosis, hemoglobin was 13.2, with blood cell count is 4.6, d-dimer was 0.72, sodium was 1:30, potassium 3.9, chloride is 95, CO2 is 26, BUN is 11, cr eatinine 0.85. Ferritin level was 229, AST was 76, ALT was 42, alkaline phosphatase was 69, LDH was 669, CRP was 19, Protonix and was 0.06. She was started on combination of Zithromax, Plaquenil, zinc and IV steroids. Zosyn was added to antibiotic coverage by the attending physician for possibility of secondary bacterial pneumonia as the patient has been coughing up some yellow sputum. Blood culture has shown no growth, today's chest x-ray showed perihilar and basilar mixed infiltrates persist is without significant interval change. Patient is awake and alert, she is currently on 2 L of oxygen her pulse ox is 92-94%, she still has a persistent cough, respirations are nonlabored, she has been afebrile. Follow-up d-dimer was drawn and was less than 0.17, ferritin is not elevated at 254, and LDH is 837. Pro-calcitonin was negative on admission and 0.06. Patient's daughter is an ICU nurse at this hospital, and we were requested to see this patient in evaluation for Covid 19 related pneumonia Review of Systems All systems: negative Constitutional: Denies chills, Denies fever Eyes: denies blurred vision, denies pain Ears, nose, mouth and throat: Denies headache, Denies sore throat Cardiovascular: Denies chest pain, Denies shortness of breath Respiratory: Reports cough, Reports cough with sputum, Reports dyspnea Gastrointestinal: Reports nausea, Reports vomiting, Denies abdominal pain, Denies diarrhea Genitourinary: Denies dysuria, Denies hematuria Musculoskeletal: Denies myalgias Integumentary: Denies pruritus, Denies rash Neurological: Denies numbness, Denies weakness Psychiatric: Denies anxiety, Denies depression Endocrine: Denies fatigue, Denies weight change Past Medical History Past Medical History: Fibromyalgia, GERD/Reflux History of Any Multi-Drug Resistant Organisms: None Reported Additional Past Surgical History / Comment(s): microdiscectomy Past Psychological History: Anxiety Smoking Status: Never smoker Past Alcohol Use History: Occasional Past Drug Use History: None Reported - Past Family History Mother Family Medical History: CVA/TIA Medications and Allergies Home Medications Medication Instructions Recorded Confirmed Type Acetaminophen Tab [Tylenol] 650 mg PO Q4H PRN 11/17/19 11/17/19 History Ondansetron HCl [Zofran] 4 mg PO TID PRN 11/17/19 11/17/19 History guaiFENesin SYRUP 100MG/5ML 200 mg PO Q6H PRN 11/17/19 11/17/19 History [Robitussin] Allergies Allergy/AdvReac Type Severity Reaction Status Date / Time narcotics AdvReac Severe Nausea & Uncoded 11/17/19 15:44 Vomiting Physical Exam Vitals: Vital Signs Temp Pulse Resp BP BP Pulse Ox 11/21/19 07:00 97.8 F 76 20 119/70 92 L 11/21/19 03:09 20 11/20/19 23:17 98.0 F 64 18 108/66 94 L 11/20/19 18:56 98.0 F 92 20 115/74 94 L 11/20/19 15:00 97.8 F 78 17 121/80 94 L Intake and Output 11/20/19 11/21/19 11/21/19 22:59 06:59 14:59 Intake Total 480 Balance 480 Intake: Oral 480 Other: Voiding Method Toilet GENERAL EXAM: Alert, very pleasant, 59-year-old -S[place]i female, on 2 L of oxygen with a pulse ox of 92-94%, comfortable in no apparent distress. HEAD: Normocephalic/atraumatic. EYES: Normal reaction of pupils, equal size. Conjunctiva pink, sclera white. NOSE: Clear with pink turbinates. THROAT: No erythema or exudates. NECK: No masses, no JVD, no thyroid enlargement, no adenopathy. CHEST: No chest wall deformity. Symmetrical expansion. LUNGS: Equal air entry with no crackles, wheeze, rhonchi or dullness. CVS: Regular rate and rhythm, normal S1 and S2, no gallops, no murmurs, no rubs ABDOMEN: Soft, nontender. No hepatosplenomegaly, normal bowel sounds, no guarding or rigidity. EXTREMITIES: No clubbing, no edema, no cyanosis, 2+ pulses and upper and lower extremities. MUSCULOSKELETAL: Muscle strength and tone normal. SPINE: No scoliosis or deformity SKIN: No rashes CENTRAL NERVOUS SYSTEM: Alert and oriented -3. No focal deficits, tone is normal in all 4 extremities. PSYCHIATRIC: Alert and oriented -3. Appropriate affect. Intact judgment and insight. Results - Laboratory Findings CBC and BMP: 11/18/19 07:33 11/19/19 11:11 PT/INR, D-dimer PT 9.4 sec (9.0-12.0) 11/17/19 13:17 INR 0.9 (<1.2) 11/17/19 13:17 D-Dimer <0.17 mg/L FEU (<0.60) 11/20/19 20:55 Abnormal lab findings: Abnormal Labs 11/17/19 11/17/19 11/18/19 13:17 13:17 07:33 WBC D-Dimer 0.72 H Sodium 130 L 134 L Potassium 3.4 L Chloride 95 L Glucose POC Glucose (mg/dL) Calcium 8.0 L AST 76 H 63 H ALT 42 H 40 H Lactate Dehydrogenase 669 H 656 H C-Reactive Protein 19.0 H 21.4 H Albumin 3.3 L 11/18/19 11/18/19 11/19/19 07:33 20:49 06:52 WBC 3.1 L D-Dimer Sodium Potassium Chloride Glucose POC Glucose (mg/dL) 113 H 126 H Calcium AST ALT Lactate Dehydrogenase C-Reactive Protein Albumin 11/19/19 11/19/19 11/19/19 11:11 11:49 16:53 WBC D-Dimer Sodium 133 L Potassium Chloride Glucose 147 H POC Glucose (mg/dL) 137 H 147 H Calcium AST ALT Lactate Dehydrogenase C-Reactive Protein Albumin 11/19/19 11/20/19 11/20/19 20:50 06:55 11:50 WBC D-Dimer Sodium Potassium Chloride Glucose POC Glucose (mg/dL) 128 H 116 H 114 H Calcium AST ALT Lactate Dehydrogenase C-Reactive Protein Albumin 11/20/19 11/20/19 11/20/19 11:57 16:47 20:12 WBC D-Dimer Sodium Potassium Chloride Glucose POC Glucose (mg/dL) 105 H 107 H Calcium AST ALT Lactate Dehydrogenase 837 H C-Reactive Protein Albumin 11/21/19 06:50 WBC D-Dimer Sodium Potassium Chloride Glucose POC Glucose (mg/dL) 110 H Calcium AST ALT Lactate Dehydrogenase C-Reactive Protein Albumin - Diagnostic Findings Chest x-ray: report reviewed, image reviewed Additional studies: EKG reviewed Assessment and Plan Plan: Assessment: #1. Acute hypoxic respiratory failure related to COVID19 related pneumonia, patient developed symptoms of cough or shortness of breath on 11/12/2019, she was tested positive for COVID 19 on 11/15/2019, and presented to the hospital on 11/17/2019 with complaints of shortness of breath, cough, nausea vomiting and syncopal episode. #2. A brief syncopal episode at home likely related to orthostatic hypotension, secondary to nausea and vomiting, and possibility of vasovagal episode #3. Borderline hypotension on admission, related to hypovolemia secondary to nausea and vomiting, improved with IV hydration #4. Mildly elevated inflammatory markers including LDH and CRP, related to C ovid 19 infection #5. Mildly elevated d-dimer, normalized #6. History of fibromyalgia #7. GERD/reflux #8. Anxiety #9. Never smoker Plan: Patient is a persistent dry cough, nonproductive, she's been afebrile, we can stop the Zosyn, will keep the azithromycin, will repeat a pro-calcitonin level, continue with Plaquenil, continue IV steroids, oral zinc. We will add some cough syrup. Clinically patient is stable, will continue with current medical treatment, will collect a sputum specimen if patient is producing sputum. Based on only mild elevation of inflammatory markers and d-dimer, the extent of COVID 19 symptoms seems to be mild. We'll continue to closely monitor. I performed a history & physical examination of the patient and discussed their management with my nurse practitioner, Stephanie Gleason. I reviewed the nurse practitioner's note and agree with the documented findings and plan of care. Lung sounds are positive for diminished breath sounds at the bases. The f indings and the impression was discussed with the patient. I attest to the documentation by the nurse practitioner. Time with Patient: Greater than 30
[2019-11-21] MEDS: BENZONATATE 100 MG CAP PO SCH ×3 (10:33→21:55)
[2019-11-21 11:32] LABS: Glucose,Whole Blood 92 mg/dL (75-99)
--- NOTE | 2019-11-21 14:22 | P.PN ---
Subjective Progress Note Date: 11/21/19 Principal diagnosis: shortness of breath 59-year-old -Syrian female with a history of fibromyalgia, GERD, and anxiety who presented to the emergency department with complaints of coughing and shortness of breath. 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 On admission she was found have bilateral pneumonia. Infectious disease was consulted and she was started on Zithromax, Plaquenil, IV steroids, and zinc. She was also seen by pulmonary. Initial laboratory analysis had showed a d- dimer of 0.72 which had normalized by 11/19, LDH is 669 which has been elevating, CRP of 19 which back to 21.4 and then normalized at 6.5. Liver enzymes mildly elevated but have been down trending. Ferritin of 254. She had some worsening of her chest x-ray on 11/19 with worsening left-sided infiltrate and Zosyn was added. Of note patient was initially admitted to Dr. Nick but we were asked to take over her care care 11/21/19 at family request. Patient seen and examined at bedside. She reports that she feels better than admission. Her nausea, vomiting, abdominal pain have completely resolved. She continues to have a cough and shortness of breath. It is very bad with exertion and she feels presyncopal. She states that her eating and drinking is doing better. Objective - Vital Signs Vital signs: Vital Signs Temp 98.1 F 11/21/19 12:00 Pulse 72 11/21/19 12:00 Resp 28 H 11/21/19 12:00 BP 126/71 11/21/19 12:00 Pulse Ox 96 11/21/19 12:00 Intake & Output 11/20/19 11/21/19 11/21/19 18:59 06:59 18:59 Intake Total 480 Balance 480 Intake: Oral 480 Other: Voiding Method Toilet # Voids 3 - Exam General: ill appearing, no distress, appears at stated age Derm: warm, dry Head: atraumatic, normocephalic, symmetric Eyes: EOMI, no lid lag, anicteric sclera Mouth: no lip lesion, mucus membranes moist Cardiovascular: S1S2 reg, no murmur, positive posterior tibial pulse bilateral, Lungs: Crackles bilateral, no rhonchi, no rales , no accessory muscle use, 3 word conversational dyspnea Ext: no gross muscle atrophy, no edema, no contractures Neuro: CN II-XI grossly intact, no focal neuro deficits Psych: Alert, oriented, appropriate affect - Labs CBC & Chem 7: 11/18/19 07:33 11/19/19 11:11 Labs: Abnormal Lab Results - Last 24 Hours (Table) 11/20/19 11/20/19 11/21/19 Range/Units 16:47 20:12 06:50 POC Glucose (mg/dL) 105 H 107 H 110 H (75-99) mg/dL Microbiology - Last 24 Hours (Table) 11/17/19 13:17 Blood Culture - Preliminary Blood No Growth after 72 hours Assessment and Plan Assessment: Covid-19 pneumonia with acute hypoxic respiratory failure - check CRP, LDH, and Ferritin in AM - Procalcitonin pending - Zosyn stopped - ID recs - Pulm recs appreciated - Complete plaquinil - Zithromax per ID - Zinc - wean o2 as able - cough supressants - steroids started, could consider decreasing soon -sputum culture if able - bronchodilators Transaminitis, related to above -Continue to follow liver enzymes Syncope - Tele without significant events - QtC normal - Check Echo DVT prophylaxis: Lovenox Discussed with: Patient, nursing Anticipated discharge: 2-[address]: home A total of 35 minutes was spent on the care of this complex patient more than 50% of the time was spent in counseling and care coordination.
[2019-11-21] MEDS: AZITHROMYCIN 500 MG TAB PO SCH (15:24)
[2019-11-21 16:29] LABS: Glucose,Whole Blood 113 mg/dL (75-99)
[2019-11-21 20:37] LABS: Glucose,Whole Blood 139 mg/dL (75-99)
[2019-11-21] MEDS: guaiFENesin SYRUP 100MG/5ML 200 MG/10 ML CUP PO PRN (21:55)
--- NOTE | 2019-11-21 22:24 | PN ---
PROGRESS NOTE DATE OF SERVICE: 11/21/2019 REASON FOR FOLLOWUP: Acute COVID-19 pneumonia. INTERVAL HISTORY: The patient is currently afebrile. She is breathing slightly comfortably. She continues to have a dry hacking cough, but not worsening in intensity. Slight nausea but no vomiting. No abdominal pain or diarrhea. PHYSICAL EXAMINATION: Blood pressure 104/66, pulse of 73, temperature 98.3. She is 96% on 2 L nasal cannula. General description is a middle-aged female up in the bed in no distress. RESPIRATORY SYSTEM: Unlabored breathing. Some coarse crackles at the bases. No wheeze. HEART: S1, S2. Regular rate and rhythm. ABDOMEN: Soft. No tenderness. LABS: D-dimer is 0.17 with procalcitonin 0.06. DIAGNOSTIC IMPRESSION AND PLAN: Patient with acute COVID-19 pneumonia. The patient's clinical status is stable at this point. She is currently requiring only low-dose oxygen. She has completed her Plaquenil therapy, currently on Zithromax, Solu-Medrol and zinc; to continue and monitor her clinical course closely. MMODL / IJN: [id number] /
[2019-11-22] MEDS: ALBUTEROL HFA INHALER INHALATION SCH ×7 (00:28→23:55)
[2019-11-22 07:12] LABS: Glucose,Whole Blood 114 mg/dL (75-99)
[2019-11-22] MEDS: ONDANSETRON 4 MG/2 ML VIAL IVP PRN ×2 (07:42→19:18)
[2019-11-22 08:09] LABS: Basophils % (A) 0 %; Eosinophils # (A) 0.2 k/uL (0-0.7); Eosinophils % (A) 2 %; HCT 43.4 % (34.0-46.0); HGB 13.3 gm/dL (11.4-16.0); Lymphocytes # (A) 0.6 k/uL (1.0-4.8); Lymphocytes % (A) 5 %; MCH 28.3 pg (25.0-35.0); MCHC 30.7 g/dL (31.0-37.0); MCV 92.2 fL (80.0-100.0); Mean Platelet Volume 8.8; Monocytes # (A) 0.3 k/uL (0-1.0); Monocytes % (A) 3 %; Neutrophils # (A) 10.8 k/uL (1.3-7.7); Neutrophils % (A) 89 %; Platelet Count 278 k/uL (150-450); RBC 4.71 m/uL (3.80-5.40); RDW 12.6 % (11.5-15.5); WBC 12.2 k/uL (3.8-10.6)
[2019-11-22 08:15] LABS: ALT 49 U/L (4-34); AST 53 U/L (14-36); African American GFR (CKD) >90 (>60 ml/min/1.73 sqM); Albumin 3.4 g/dL (3.5-5.0); Alkaline Phosphatase 57 U/L (38-126); Anion Gap 4 mmol/L; Blood Urea Nitrogen 12 mg/dL (7-17); Calcium 9.3 mg/dL (8.4-10.2); Carbon Dioxide 30 mmol/L (22-30); Chloride 102 mmol/L (98-107); Glucose 114 mg/dL (74-99); LDH 934 U/L (313-618); Non-African American GFR(CKD) >90 (>60 ml/min/1.73 sqM); Potassium 4.4 mmol/L (3.5-5.1); Sodium 136 mmol/L (137-145); Total Bilirubin 0.7 mg/dL (0.2-1.3); Total Protein 6.7 g/dL (6.3-8.2)
--- NOTE | 2019-11-22 08:53 | ECHOF ---
Referral Reason:syncope, COVID-19 MEASUREMENTS -------- HEIGHT: 165.1 cm WEIGHT: 77.6 kg BP: 126/71 RVIDd: 2.8 cm (< 3.3) IVSd: 1.2 cm (0.6 - 1.1) LVIDd: 3.4 cm (3.9 - 5.3) LVPWd: 1.4 cm (0.6 - 1.1) IVSs: 1.7 cm LVIDs: 2.4 cm LVPWs: 1.4 cm LAESV Index (A-L): 19.57 ml/m Ao Diam: 2.4 cm (2.0 - 3.7) AV Cusp: 2.0 cm (1.5 - 2.6) LA Diam: 3.1 cm (2.7 - 3.8) MV EXCURSION: 14.317 mm (> 18.000) MV EF SLOPE: 64 mm/s (70 - 150) EPSS: 0.4 cm MV E Vernon: 0.50 m/s MV DecT: 150 ms MV A Vernon: 0.55 m/s MV E/A Ratio: 0.91 RAP: 5.00 mmHg RVSP: 39.63 mmHg FINDINGS -------- Sinus rhythm. This was a technically adequate study. The left ventricular size is normal. There is mild concentric left ventricular hypertrophy. Overa ll left ventricular systolic function is normal with, an EF between 55 - 60 %. The right ventricle is normal in size. The left atrial size is normal. Normal LA size by volume 22+/-6 ml/m2. The right atrial size is normal. The aortic valve is trileaflet and appears structurally normal. The mitral valve is normal. There is trace mitral regurgitation. The tricuspid valve appears structurally normal. Mild tricuspid regurgitation present. There is m ild pulmonary hypertension. The right ventricular systolic pressure, as measured by Doppler, is 39. 63mmHg. Trace/mild (physiologic) pulmonic regurgitation. The aortic root size is normal. Normal inferior vena cava with normal inspiratory collapse consistent with estimated right atrial pre ssure of 5 mmHg. There is a trivial pericardial effusion present. CONCLUSIONS -------- 1. Sinus rhythm. 2. This was a technically adequate study. 3. The left ventricular size is normal. 4. There is mild concentric left ventricular hypertrophy. 5. Overall left ventricular systolic function is normal with, an EF between 55 - 60 %. 6. The right ventricle is normal in size. 7. The left atrial size is normal. 8. Normal LA size by volume 22+/-6 ml/m2. 9. The right atrial size is normal. 10. The aortic valve is trileaflet and appears structurally normal. 11. The mitral valve is normal. 12. There is trace mitral regurgitation. 13. The tricuspid valve appears structurally normal. 14. Mild tricuspid regurgitation present. 15. There is mild pulmonary hypertension. 16. The right ventricular systolic pressure, as measured by Doppler, is 39.63mmHg. 17. Trace/mild (physiologic) pulmonic regurgitation. 18. The aortic root size is normal. 19. Normal inferior vena cava with normal inspiratory collapse consistent with estimated right atrial pressure of 5 mmHg. 20. There is a trivial pericardial effusion present. MANAGING DIRECTOR ATLAS: Bessy Rhodes RDCS
[2019-11-22] MEDS: INSULIN ASPART (NovoLOG) 100 UNIT/ML VIAL SQ SCH ×4 (09:06→20:41)
[2019-11-22 09:18] LABS: C Reactive Protein 12.6 mg/L (<10.0)
[2019-11-22] MEDS: methylPREDNISolone SOD SUCCI 125 MG/2 ML VIAL IV SCH (09:19)
[2019-11-22] MEDS: ZINC SULFATE 220 MG CAP PO SCH (09:19)
[2019-11-22] MEDS: ENOXAPARIN 40 MG/0.4 ML SYRINGE SQ SCH ×2 (09:19→20:43)
[2019-11-22] MEDS: BENZONATATE 100 MG CAP PO SCH ×3 (09:19→20:43)
[2019-11-22 11:30] LABS: Glucose,Whole Blood 140 mg/dL (75-99)
--- NOTE | 2019-11-22 11:43 | P.PN ---
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 Patient lives in [place], and on 11/07/2019 she presented to the emergency department with complaints of persistent cough, shortness of breath. She denies any overt chills, sweats, dyspnea is exertional and at rest. Patient has no known history of hypertension, heart or chronic lung disease, she is a nonsmoker. No other major medical issues except for fibromyalgia. Does report a pulse ox in the high 80s at around 88% at home. She was placed on supplemental oxygen by the paramedics on the way to the hospital. She reports nausea and vomiting. She reports an episode of syncope at home. Her blood pressure was 90/50 on arrival, she was given a small amount of IV fluid bolus, to which she responded well with improvement in her blood pressure. Chest x-ray showed mild patchy and lower lung infiltrates, left greater than right. Her lab work on admission showed unremarkable CBC, no signs of leukocytosis, or lymphocytosis, hemoglobin was 13.2, with blood cell count is 4.6, d-dimer was 0.72, sodium was 1:30, potassium 3.9, chloride is 95, CO2 is 26, BUN is 11, creatinine 0.85. Ferritin level was 229, AST was 76, ALT was 42, alkaline phosphatase was 69, LDH was 669, CRP was 19, Protonix and was 0.06. She was started on combination of Zithromax, Plaquenil, zinc and IV steroids. Zosyn was added to antibiotic coverage by the attending physician for possibility of secondary bacterial pneumonia as the patient has been coughing up some yellow sputum. Blood culture has shown no growth, today's chest x-ray showed perihilar and basilar mixed infiltrates persist is without significant interval change. Patient is awake and alert, she is currently on 2 L of oxygen her pulse ox is 92-94%, she still has a persistent cough, respirations are nonlabored, she has been afebrile. Follow-up d-dimer was drawn and was less than 0.17, ferritin is not elevated at 254, and LDH is 837. Pro-calcitonin was negative on admission and 0.06. Patient's daughter is an ICU nurse at this hospital, and we were r equested to see this patient in evaluation for Covid 19 related pneumonia On 11/22/2019 patient seen in follow-up on a general medical floor. She is still coughing, still has some exertional dyspnea, she is on 2 L of oxygen with a pulse ox of 90-92%, she is afebrile. Blood and sputum cultures have shown no growth so far, hemodynamically patient remains stable. Today's labs have been reviewed, with blood cell count is improved, and is up to 12.2, hemoglobin is 13.3, d-dimer was negative at less than 0.17, electrolytes and renal profile were unremarkable, AST is improved and is down to 53, ALT is relatively stable, slightly up to 49. LDH is up to 934, and CRP is down to 12.6, pro-calcitonin level was negative at 0.6. Hemodynamically patient is stable, no altered mentation. Echocardiogram was done showing EF between 55-60% trace mitral regurg, mild tricuspid regurg, mild pulmonary hypertension with right-sided pressures of 39 mmHg. There was trivial amount of pericardial effusion. Patient is on oral Zithromax, IV steroids, she has completed her Plaquenil. Objective - Vital Signs Vital signs: Vital Signs Temp 97.8 F 11/22/19 10:54 Pulse 94 11/22/19 10:54 Resp 22 11/22/19 10:54 BP 125/74 11/22/19 10:54 Pulse Ox 90 L 11/22/19 10:54 Intake & Output 11/21/19 11/22/19 11/22/19 18:59 06:59 18:59 Intake Total 200 Balance 200 Intake: Oral 200 Other: Voiding Method Toilet Toilet # Voids 1 1 - Exam GENERAL EXAM: Alert, very pleasant, 59-year-old -Ugand[place] female, on 2 L of oxygen with a pulse ox of 92-94%, comfortable in no apparent distress. HEAD: Normocephalic/atraumatic. EYES: Normal reaction of pupils, equal size. Conjunctiva pink, sclera white. NOSE: Clear with pink turbinates. THROAT: No erythema or exudates. NECK: No masses, no JVD, no thyroid enlargement, no adenopathy. CHEST: No chest wall deformity. Symmetrical expansion. LUNGS: Equal air entry with no crackles, wheeze, rhonchi or dullness. CVS: Regular rate and rhythm, normal S1 and S2, no gallops, no murmurs, no rubs ABDOMEN: Soft, nontender. No hepatosplenomegaly, normal bowel sounds, no guarding or rigidity. EXTREMITIES: No clubbing, no edema, no cyanosis, 2+ pulses and upper and lower extremities. MUSCULOSKELETAL: Muscle strength and tone normal. SPINE: No scoliosis or deformity SKIN: No rashes CENTRAL NERVOUS SYSTEM: Alert and oriented -3. No focal deficits, tone is normal in all 4 extremities. PSYCHIATRIC: Alert and oriented -3. Appropriate affect. Intact judgment and insight. - Labs CBC & Chem 7: 11/22/19 07:43 11/22/19 07:43 Labs: Abnormal Lab Results - Last 24 Hours (Table) 11/21/19 11/21/19 11/22/19 Range/Units 16:28 20:33 07:11 WBC (3.8-10.6) k/uL MCHC (31.0-37.0) g/dL Neutrophils # (1.3-7.7) k/uL Lymphocytes # (1.0-4.8) k/uL Sodium (137-145) mmol/L Glucose (74-99) mg/dL POC Glucose (mg/dL) 113 H 139 H 114 H (75-99) mg/dL AST (14-36) U/L ALT (4-34) U/L Lactate Dehydrogenase (313-618) U/L C-Reactive Protein (<10.0) mg/L Albumin (3.5-5.0) g/dL 11/22/19 11/22/19 11/22/19 Range/Units 07:43 07:43 11:27 WBC 12.2 H (3.8-10.6) k/uL MCHC 30.7 L (31.0-37.0) g/dL Neutrophils # 10.8 H (1.3-7.7) k/uL Lymphocytes # 0.6 L (1.0-4.8) k/uL Sodium 136 L (137-145) mmol/L Glucose 114 H (74-99) mg/dL POC Glucose (mg/dL) 140 H (75-99) mg/dL AST 53 H (14-36) U/L ALT 49 H (4-34) U/L Lactate Dehydrogenase 934 H (313-618) U/L C-Reactive Protein 12.6 H (<10.0) mg/L Albumin 3.4 L (3.5-5.0) g/dL Microbiology - Last 24 Hours (Table) 11/21/19 11:12 Gram Stain - Preliminary Sputum Sputum Culture - Preliminary 11/17/19 13:17 Blood Culture - Preliminary Blood No Growth after 96 hours Assessment and Plan Plan: Assessment: #1. Acute hypoxic respiratory failure related to COVID19 related pneumonia, patient developed symptoms of cough or shortness of breath on 11/12/2019, she was tested positive for COVID 19 on 11/15/2019, and presented to the hospital on 11/17/2019 with complaints of shortness of breath, cough, nausea vomiting and syncopal episode. #2. A brief syncopal episode at home likely related to orthostatic hypotension, secondary to nausea and vomiting, and possibility of vasovagal episode #3. Borderline hypotension on admission, related to hypovolemia secondary to nausea and vomiting, improved with IV hydration #4. Mildly elevated inflammatory markers including LDH and CRP, related to Covid 19 infection #5. Mildly elevated d-dimer, normalized #6. History of fibromyalgia #7. GERD/reflux #8. Anxiety #9. Never smoker Plan: Continue with current medical treatment, she has completed her Plaquenil, remains on azithromycin, she's been afebrile, on low-dose of oxygen, still has some exertional dyspnea, and a dry cough, clinically feels about the same, but the nausea and vomiting have improved, and patient is tolerating oral intake. We'll obtain follow-up chest x-ray tomorrow. Continue to follow I performed a history & physical examination of the patient and discussed their management with my nurse practitioner, Stephanie Gleason. I reviewed the nurse practitioner's note and agree with the documented findings and plan of care. Melissa ng sounds are positive for diminished breath sounds at the bases. The findings and the impression was discussed with the patient. I attest to the documentation by the nurse practitioner. Time with Patient: Less than 30
[2019-11-22] MEDS: CALCIUM CARBONATE 500 MG CHEWABLE PO PRN (14:15)
[2019-11-22] MEDS: AZITHROMYCIN 500 MG TAB PO SCH (16:30)
[2019-11-22 16:34] LABS: Glucose,Whole Blood 146 mg/dL (75-99)
[2019-11-22 17:00] LABS: Ferritin 221.5 ng/mL (10.0-291.0)
--- NOTE | 2019-11-22 17:05 | PN ---
PROGRESS NOTE DATE OF SERVICE: 11/22/2019 REASON FOR FOLLOWUP: Acute COVID-19 infection. INTERVAL HISTORY: The patient is currently afebrile. The patient continues to have some dry hacking cough with occasional sputum. No hemoptysis or chest pain. No nausea, no vomiting. No abdominal pain or diarrhea. PHYSICAL EXAMINATION: Blood pressure 130/83 with pulse of 98, temperature 97.8. She is 92% on 2 L nasal cannula. General description is a middle-aged female up in the chair in no distress. RESPIRATORY SYSTEM: Unlabored breathing. Some coarse crackles at the bases bilaterally. No wheeze. HEART: S1, S2. Regular rate and rhythm. LABS: Hemoglobin 13.3, white count 12.2, BUN of 12, creatinine 0.63. DIAGNOSTIC IMPRESSION AND PLAN: Patient with acute COVID-19 pneumonia in this patient currently covered with Zithromax, Solu-Medrol, Lovenox; has completed her Plaquenil therapy. To continue and we will monitor clinical course closely. Continue supportive care. MMODL / IJN: [id number] /
--- NOTE | 2019-11-22 17:31 | P.PN ---
Subjective Progress Note Date: 11/22/19 (delayed charting seen at 1130) Principal diagnosis: shortness of breath 59-year-old -[place]ian female with a history of fibromyalgia, GERD, and anxiety who presented to the emergency department with complaints of coughing and shortness of breath. 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 On admission she was found have bilateral pneumonia. Infectious disease was consulted and she was started on Zithromax, Plaquenil, IV steroids, and zinc. She was also seen by pulmonary. Initial laboratory analysis had showed a d- dimer of 0.72 which had normalized by 11/19, LDH is 669 which has been elevating, CRP of 19 which back to 21.4 and then normalized at 6.5. Liver enzymes mildly elevated but have been down trending. Ferritin of 254. She had some worsening of her chest x-ray on 11/19 with worsening left-sided infiltrate and Zosyn was added and then removed by pulmonary. On 11/21 her HR elevated to 100-120 with ambulation. Patient seen and examined at bedside. Very short of breath but has been walking and doing alot in her room. Had taken a shower today. She still feels very run down. No chest pain, no dizziness. Objective - Vital Signs Vital signs: Vital Signs Temp 97.8 F 11/22/19 15:00 Pulse 98 11/22/19 15:00 Resp 32 H 11/22/19 15:00 BP 130/83 11/22/19 15:00 Pulse Ox 92 L 11/22/19 15:00 Intake & Output 11/21/19 11/22/19 11/22/19 18:59 06:59 18:59 Intake Total 200 600 Output Total 3 Balance 200 597 Intake: Oral 200 600 Output: Urine 3 Other: Voiding Method Toilet Toilet # Voids 1 1 - Exam General: ill appearing, mild distress, appears at stated age Derm: warm, dry Head: atraumatic, normocephalic, symmetric Eyes: EOMI, no lid lag, anicteric sclera Mouth: no lip lesion, mucus membranes moist Cardiovascular: S1S2 reg, no murmur, positive posterior tibial pulse bilateral, Lungs: Crackles bilateral, no rhonchi, no rales , + accessory muscle use, 3 word conversational dyspnea Ext: no gross muscle atrophy, no edema, no contractures Neuro: CN II-XI grossly intact, no focal neuro deficits Psych: Alert, oriented, appropriate affect - Labs CBC & Chem 7: 11/22/19 07:43 11/22/19 07:43 Labs: Abnormal Lab Results - Last 24 Hours (Table) 11/21/19 11/22/19 11/22/19 Range/Units 20:33 07:11 07:43 WBC (3.8-10.6) k/uL MCHC (31.0-37.0) g/dL Neutrophils # (1.3-7.7) k/uL Lymphocytes # (1.0-4.8) k/uL Sodium 136 L (137-145) mmol/L Glucose 114 H (74-99) mg/dL POC Glucose (mg/dL) 139 H 114 H (75-99) mg/dL AST 53 H (14-36) U/L ALT 49 H (4-34) U/L Lactate Dehydrogenase 934 H (313-618) U/L C-Reactive Protein 12.6 H (<10.0) mg/L Albumin 3.4 L (3.5-5.0) g/dL 11/22/19 11/22/19 11/22/19 Range/Units 07:43 11:27 16:33 WBC 12.2 H (3.8-10.6) k/uL MCHC 30.7 L (31.0-37.0) g/dL Neutrophils # 10.8 H (1.3-7.7) k/uL Lymphocytes # 0.6 L (1.0-4.8) k/uL Sodium (137-145) mmol/L Glucose (74-99) mg/dL POC Glucose (mg/dL) 140 H 146 H (75-99) mg/dL AST (14-36) U/L ALT (4-34) U/L Lactate Dehydrogenase (313-618) U/L C-Reactive Protein (<10.0) mg/L Albumin (3.5-5.0) g/dL Microbiology - Last 24 Hours (Table) 11/17/19 13:17 Blood Culture - Preliminary Blood No Growth after 120 hours 11/21/19 11:12 Gram Stain - Preliminary Sputum Sputum Culture - Preliminary Assessment and Plan Assessment: Covid-19 pneumonia with acute hypoxic respiratory failure - check CRP, LDH, and Ferritin in AM - Procalcitonin pending - Zosyn stopped - ID recs - Pulm recs appreciated - Complete plaquinil - Zithromax per ID - Zinc - wean o2 as able - cough supressants - steroids started, could consider decreasing soon -sputum culture if able - bronchodilators Leukocytosis - likely due to steroids - follow CBC Transaminitis, related to above -Continue to follow liver enzymes Syncope - Tele without significant events - QtC normal - echo with preserved EF DVT prophylaxis: Lovenox Discussed with: Patient, nursing Anticipated discharge: 2-[address]: home A total of 35 minutes was spent on the care of this complex patient more than 50% of the time was spent in counseling and care coordination.
[2019-11-22 20:07] LABS: Glucose,Whole Blood 102 mg/dL (75-99)
[2019-11-23] MEDS: ALBUTEROL HFA INHALER INHALATION SCH ×6 (03:47→19:46)
[2019-11-23] MEDS: ONDANSETRON 4 MG/2 ML VIAL IVP PRN ×2 (04:05→09:43)
[2019-11-23 06:50] LABS: ALT 44 U/L (4-34); AST 37 U/L (14-36); African American GFR (CKD) >90 (>60 ml/min/1.73 sqM); Albumin 2.9 g/dL (3.5-5.0); Alkaline Phosphatase 61 U/L (38-126); Anion Gap 4 mmol/L; Blood Urea Nitrogen 17 mg/dL (7-17); Calcium 8.9 mg/dL (8.4-10.2); Carbon Dioxide 30 mmol/L (22-30); Chloride 102 mmol/L (98-107); Glucose 87 mg/dL (74-99); Non-African American GFR(CKD) 89 (>60 ml/min/1.73 sqM); Potassium 4.1 mmol/L (3.5-5.1); Sodium 136 mmol/L (137-145); Total Bilirubin 0.5 mg/dL (0.2-1.3); Total Protein 5.9 g/dL (6.3-8.2)
[2019-11-23 06:55] LABS: HCT 39.3 % (34.0-46.0); HGB 12.3 gm/dL (11.4-16.0); MCH 28.4 pg (25.0-35.0); MCHC 31.2 g/dL (31.0-37.0); Mean Platelet Volume 9.5; Platelet Count 308 k/uL (150-450); RBC 4.32 m/uL (3.80-5.40); RDW 12.7 % (11.5-15.5); WBC 8.9 k/uL (3.8-10.6)
[2019-11-23 07:03] LABS: Glucose,Whole Blood 93 mg/dL (75-99)
[2019-11-23] MEDS: ENOXAPARIN 40 MG/0.4 ML SYRINGE SQ SCH ×2 (07:24→21:14)
[2019-11-23] MEDS: ZINC SULFATE 220 MG CAP PO SCH (07:24)
[2019-11-23] MEDS: BENZONATATE 100 MG CAP PO SCH ×3 (07:24→21:14)
[2019-11-23] MEDS: methylPREDNISolone SOD SUCCI 40 MG/ML 1 ML VIAL IV SCH (07:25)
[2019-11-23] MEDS: INSULIN ASPART (NovoLOG) 100 UNIT/ML VIAL SQ SCH ×4 (07:25→21:13)
[2019-11-23 08:23] LABS: Lymphocytes # (M) 1.16 k/uL (1.0-4.8); Monocytes # (M) 0.71 k/uL (0-1.0); Neutrophils # (M) 7.03 k/uL (1.3-7.7); Neutrophils % (M) 79 %; Nucleated Red Blood Cells 0 /100 WBC (0-0); Total Cells Counted 100
--- NOTE | 2019-11-23 08:44 | XR ---
EXAMINATION TYPE: XR chest 1V portable DATE OF EXAM: 11/23/2019 COMPARISON: 11/21/2019 HISTORY: COVID 19, follow-up exam TECHNIQUE: Single frontal view of the chest is obtained. FINDINGS: There are low lung volumes. Left interstitial perihilar midlung airspace disease and basil ar airspace disease has slightly worsened. Interstitial prominence of the right perihilar region is a lso seen. Lung apices are well aerated. No sizable pneumothorax or discrete pleural effusion. Cardiom ediastinal silhouette is stable. No acute osseous process. IMPRESSION: Slightly worsened multifocal interstitial left-sided airspace disease and right perihila r airspace disease. Hypoventilatory lungs.
[2019-11-23] MEDS ORDERED: TRIMETHOBENZAMIDE 300 MG CAP PO PRN (11:53)
[2019-11-23 12:01] LABS: Glucose,Whole Blood 140 mg/dL (75-99)
--- NOTE | 2019-11-23 13:00 | P.PN ---
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 Patient lives in [place], and on 11/07/2019 she presented to the emergency department with complaints of persistent cough, shortness of breath. She denies any overt chills, sweats, dyspnea is exertional and at rest. Patient has no known history of hypertension, heart or chronic lung disease, she is a nonsmoker. No other major medical issues except for fibromyalgia. Does report a pulse ox in the high 80s at around 88% at home. She was placed on supplemental oxygen by the paramedics on the way to the hospital. She reports nausea and vomiting. She reports an episode of syncope at home. Her blood pressure was 90/50 on arrival, she was given a small amount of IV fluid bolus, to which she responded well with improvement in her blood pressure. Chest x-ray showed mild patchy and lower lung infiltrates, left greater than right. Her lab work on admission showed unremarkable CBC, no signs of leukocytosis, or lymphocytosis, hemoglobin was 13.2, with blood cell count is 4.6, d-dimer was 0.72, sodium was 1:30, potassium 3.9, chloride is 95, CO2 is 26, BUN is 11, creatinine 0.85. Ferritin level was 229, AST was 76, ALT was 42, alkaline phosphatase was 69, LDH was 669, CRP was 19, Protonix and was 0.06. She was started on combination of Zithromax, Plaquenil, zinc and IV steroids. Zosyn was added to antibiotic coverage by the attending physician for possibility of secondary bacterial pneumonia as the patient has been coughing up some yellow sputum. Blood culture has shown no growth, today's chest x-ray showed perihilar and basilar mixed infiltrates persist is without significant interval change. Patient is awake and alert, she is currently on 2 L of oxygen her pulse ox is 92-94%, she still has a persistent cough, respirations are nonlabored, she has been afebrile. Follow-up d-dimer was drawn and was less than 0.17, ferritin is not elevated at 254, and LDH is 837. Pro-calcitonin was negative on admission and 0.06. Patient's daughter is an ICU nurse at this hospital, and we were r equested to see this patient in evaluation for Covid 19 related pneumonia On 11/22/2019 patient seen in follow-up on a general medical floor. She is still coughing, still has some exertional dyspnea, she is on 2 L of oxygen with a pulse ox of 90-92%, she is afebrile. Blood and sputum cultures have shown no growth so far, hemodynamically patient remains stable. Today's labs have been reviewed, with blood cell count is improved, and is up to 12.2, hemoglobin is 13.3, d-dimer was negative at less than 0.17, electrolytes and renal profile were unremarkable, AST is improved and is down to 53, ALT is relatively stable, slightly up to 49. LDH is up to 934, and CRP is down to 12.6, pro-calcitonin level was negative at 0.6. Hemodynamically patient is stable, no altered mentation. Echocardiogram was done showing EF between 55-60% trace mitral regurg, mild tricuspid regurg, mild pulmonary hypertension with right-sided pressures of 39 mmHg. There was trivial amount of pericardial effusion. Patient is on oral Zithromax, IV steroids, she has completed her Plaquenil. On 11/23/2019 patient seen in follow-up on the general medical floor, she still has a persistent cough, and she is very nauseous, and has been vomiting. She is currently on 2 L of oxygen and her pulse ox is 94-97%, she has been afebrile, no worsening dyspnea. Today's labs have been reviewed, CBC is within normal limit s, electrolytes and renal profile are unremarkable, AST and ALT are improving, at 37 and 44 respectively, alkaline phosphatase is within normal limits, pro- calcitonin was negative, and patient is currently on oral Zithromax, IV steroids, zinc for treatment of Covid 19 infection, she has completed her Plaquenil Objective - Vital Signs Vital signs: Vital Signs Temp 97.8 F 11/23/19 07:00 Pulse 73 11/23/19 07:00 Resp 18 11/23/19 07:00 BP 124/77 11/23/19 07:00 Pulse Ox 94 L 11/23/19 07:00 Intake & Output 11/22/19 11/23/19 11/23/19 18:59 06:59 18:59 Intake Total 600 Output Total 3 Balance 597 Intake: Oral 600 Output: Urine 3 Other: Voiding Method Toilet # Voids 0 - Exam GENERAL EXAM: Alert, very pleasant, 59-year-old -[place] female, on 2 L of oxygen with a pulse ox of 92-94%, complaining of persistent cough, nausea and vomiting HEAD: Normocephalic/atraumatic. EYES: Normal reaction of pupils, equal size. Conjunctiva pink, sclera white. NOSE: Clear with pink turbinates. THROAT: No erythema or exudates. NECK: No masses, no JVD, no thyroid enlargement, no adenopathy. CHEST: No chest wall deformity. Symmetrical expansion. LUNGS: Equal air entry with no crackles, wheeze, rhonchi or dullness. CVS: Regular rate and rhythm, normal S1 and S2, no gallops, no murmurs, no rubs ABDOMEN: Soft, nontender. No hepatosplenomegaly, normal bowel sounds, no guarding or rigidity. EXTREMITIES: No clubbing, no edema, no cyanosis, 2+ pulses and upper and lower extremities. MUSCULOSKELETAL: Muscle strength and tone normal. SPINE: No scoliosis or deformity SKIN: No rashes CENTRAL NERVOUS SYSTEM: Alert and oriented -3. No focal deficits, tone is normal in all 4 extremities. PSYCHIATRIC: Alert and oriented -3. Appropriate affect. Intact judgment and insight. - Labs CBC & Chem 7: 11/23/19 05:41 11/23/19 05:41 Labs: Abnormal Lab Results - Last 24 Hours (Table) 11/22/19 11/22/19 11/23/19 Range/Units 16:33 20:05 05:41 Sodium 136 L (137-145) mmol/L POC Glucose (mg/dL) 146 H 102 H (75-99) mg/dL AST 37 H (14-36) U/L ALT 44 H (4-34) U/L Total Protein 5.9 L (6.3-8.2) g/dL Albumin 2.9 L (3.5-5.0) g/dL 11/23/19 Range/Units 12:00 Sodium (137-145) mmol/L POC Glucose (mg/dL) 140 H (75-99) mg/dL AST (14-36) U/L ALT (4-34) U/L Total Protein (6.3-8.2) g/dL Albumin (3.5-5.0) g/dL Microbiology - Last 24 Hours (Table) 11/21/19 11:12 Gram Stain - Final Sputum Sputum Culture - Final 11/17/19 13:17 Blood Culture - Preliminary Blood No Growth after 120 hours Assessment and Plan Plan: Assessment: #1. Acute hypoxic respiratory failure related to COVID19 related pneumonia, patient developed symptoms of cough or shortness of breath on 11/12/2019, she was tested positive for COVID 19 on 11/15/2019, and presented to the hospital on 11/17/2019 with complaints of shortness of breath, cough, nausea vomiting and syncopal episode. #2. A brief syncopal episode at home likely related to orthostatic hypotension, secondary to nausea and vomiting, and possibility of vasovagal episode #3. Borderline hypotension on admission, related to hypovolemia secondary to nausea and vomiting, improved with IV hydration #4. Mildly elevated inflammatory markers including LDH and CRP, related to Covid 19 infection #5. Mildly elevated d-dimer, normalized #6. History of fibromyalgia #7. GERD/reflux #8. Anxiety #9. Never smoker Plan: Patient is still having persistent cough, nausea and vomiting, Zofran has been ordered, today's chest x-ray shows slightly worsening multifocal interstitial left-sided airspace disease and right perihilar airspace disease. She has been afebrile, we'll repeat her inflammatory markers tomorrow. He has completed a course of Plaquenil, she remains on Solu-Medrol, azithromycin, cough syrup, and zinc. We will continue to closely monitor the patient, repeat inflammatory markers tomorrow. I performed a history & physical examination of the patient and discussed their management with my nurse practitioner, Stephanie Gleason. I reviewed the nurse practitioner's note and agree with the documented findings and plan of care. Lung sounds are positive for diminished breath sounds at the bases. The findings and the impression was discussed with the patient. I attest to the documentation by the nurse practitioner. Time with Patient: Less than 30
[2019-11-23] MEDS: AZITHROMYCIN 500 MG TAB PO SCH (15:29)
[2019-11-23] MEDS: guaiFENesin SYRUP 100MG/5ML 200 MG/10 ML CUP PO PRN ×2 (15:32→21:14)
[2019-11-23 16:42] LABS: Glucose,Whole Blood 107 mg/dL (75-99)
--- NOTE | 2019-11-23 18:15 | PN ---
PROGRESS NOTE DATE OF SERVICE: 11/23/2019 REASON FOR FOLLOWUP: Acute COVID-19 pneumonia. INTERVAL HISTORY: The patient is currently afebrile. She is breathing comfortably. The patient still has a dry hacking cough, though slightly decreased in intensity. No nausea, no vomiting. No abdominal pain or diarrhea. PHYSICAL EXAMINATION: Blood pressure 107/66, pulse of 71, temperature 98.2. She is 97% on 2 L nasal cannula. General description is a middle-aged female up in the chair in no distress. RESPIRATORY SYSTEM: Unlabored breathing with decreased intensity of breath sounds. No wheeze. HEART: S1, S2. Regular rate and rhythm. ABDOMEN: Soft. No tenderness. LABS: Hemoglobin is 12.3, white count 8.9. Lymphopenia has resolved with a creatinine of 0.73. DIAGNOSTIC IMPRESSION AND PLAN: Patient with acute COVID-19 pneumonia. The patient seems to have shown overall clinical improvement with resolution of her lymphopenia. The patient has completed her Plaquenil therapy. Steroids can be weaned off. Will monitor her clinical course closely. SHILAL / YINGN: [id number] /
--- NOTE | 2019-11-23 18:57 | P.PN ---
Subjective Progress Note Date: 11/23/19 (Delayed charting's and 11 AM) Principal diagnosis: shortness of breath 59-year-old -[place] female with a history of fibromyalgia, GERD, and anxiety who presented to the emergency department with complaints of coughing and shortness of breath. 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 On admission she was found have bilateral pneumonia. Infectious disease was consulted and she was started on Zithromax, Plaquenil, IV steroids, and zinc. She was also seen by pulmonary. Initial laboratory analysis had showed a d- dimer of 0.72 which had normalized by 11/19, LDH is 669 which has been elevating, CRP of 19 which back to 21.4 and then normalized at 6.5. Liver enzymes mildly e levated but have been down trending. Ferritin of 254. She had some worsening of her chest x-ray on 11/19 with worsening left-sided infiltrate and Zosyn was added and then removed by pulmonary. On 11/21 her HR elevated to 100-120 with ambulation. Repeat chest x-ray on 11/22 showed worsening pneumonia. Patient seen and examined at bedside. Today she had worsening nausea and one episode of vomiting, she continues to feel very short of breath and have coughing with even minimal talking, continues to have tachycardia when up and ambulating, still not feeling well overall. Decreased oral intake. Objective - Vital Signs Vital signs: Vital Signs Temp 98.2 F 11/23/19 15:00 Pulse 71 11/23/19 15:00 Resp 18 11/23/19 15:00 BP 107/66 11/23/19 15:00 Pulse Ox 97 11/23/19 16:25 Intake & Output 11/22/19 11/23/19 11/23/19 18:59 06:59 18:59 Intake Total 600 Output Total 3 Balance 597 Intake: Oral 600 Output: Urine 3 Other: Voiding Method Toilet # Voids 0 2 - Exam General: ill appearing, mild distress, appears at stated age Derm: warm, dry Head: atraumatic, normocephalic, symmetric Eyes: EOMI, no lid lag, anicteric sclera Mouth: no lip lesion, mucus membranes dry Cardiovascular: S1S2 reg, no murmur, positive posterior tibial pulse bilateral, Lungs: Crackles bilateral, no rhonchi, no rales , no accessory muscle use, 3 word conversational dyspnea Ext: no gross muscle atrophy, no edema, no contractures Neuro: CN II-XI grossly intact, no focal neuro deficits Psych: Alert, oriented, appropriate affect - Labs CBC & Chem 7: 11/23/19 05:41 11/23/19 05:41 Labs: Abnormal Lab Results - Last 24 Hours (Table) 11/22/19 11/23/19 11/23/19 Range/Units 20:05 05:41 12:00 Sodium 136 L (137-145) mmol/L POC Glucose (mg/dL) 102 H 140 H (75-99) mg/dL AST 37 H (14-36) U/L ALT 44 H (4-34) U/L Total Protein 5.9 L (6.3-8.2) g/dL Albumin 2.9 L (3.5-5.0) g/dL 11/23/19 Range/Units 16:40 Sodium (137-145) mmol/L POC Glucose (mg/dL) 107 H (75-99) mg/dL AST (14-36) U/L ALT (4-34) U/L Total Protein (6.3-8.2) g/dL Albumin (3.5-5.0) g/dL Microbiology - Last 24 Hours (Table) 11/17/19 13:17 Blood Culture - Final Blood No Growth after 144 hours 11/21/19 11:12 Gram Stain - Final Sputum Sputum Culture - Final Assessment and Plan Assessment: Covid-19 pneumonia with acute hypoxic respiratory failure - check CRP, LDH, and d-dimer in AM - Procalcitonin negative - Zosyn stopped - ID recs - Pulm recs appreciated - Completed plaquinil - Zithromax per ID - Zinc - wean o2 as able - cough supressants - Solumedrol -sputum culture if able - bronchodilators - follow CXR COVID gastroenteritis - supportive care. Change from zofran to Phenergan Transaminitis, related to above -Continue to follow liver enzymes Syncope - Tele without significant events - QtC normal - echo with preserved EF Leukocytosis, resolved DVT prophylaxis: Lovenox Discussed with: Patient, nursing Anticipated discharge: 2-[address]: home A total of 35 minutes was spent on the care of this complex patient more than 50% of the time was spent in counseling and care coordination.
[2019-11-23 20:23] LABS: Glucose,Whole Blood 132 mg/dL (75-99)
[2019-11-23] MEDS: CALCIUM CARBONATE 500 MG CHEWABLE PO PRN (23:52)
[2019-11-24] MEDS: ALBUTEROL HFA INHALER INHALATION SCH ×6 (00:38→19:55)
[2019-11-24 07:05] LABS: Glucose,Whole Blood 87 mg/dL (75-99)
[2019-11-24] MEDS: INSULIN ASPART (NovoLOG) 100 UNIT/ML VIAL SQ SCH ×4 (07:13→20:22)
[2019-11-24 08:10] LABS: ALT 40 U/L (4-34); AST 33 U/L (14-36); African American GFR (CKD) >90 (>60 ml/min/1.73 sqM); Albumin 2.7 g/dL (3.5-5.0); Alkaline Phosphatase 52 U/L (38-126); Anion Gap 2 mmol/L; Blood Urea Nitrogen 20 mg/dL (7-17); C Reactive Protein 5.2 mg/L (<10.0); Calcium 8.8 mg/dL (8.4-10.2); Carbon Dioxide 32 mmol/L (22-30); Chloride 100 mmol/L (98-107); Glucose 80 mg/dL (74-99); LDH 607 U/L (313-618); Non-African American GFR(CKD) >90 (>60 ml/min/1.73 sqM); Potassium 3.9 mmol/L (3.5-5.1); Sodium 134 mmol/L (137-145); Total Bilirubin 0.5 mg/dL (0.2-1.3); Total Protein 5.5 g/dL (6.3-8.2)
[2019-11-24] MEDS: ENOXAPARIN 40 MG/0.4 ML SYRINGE SQ SCH ×2 (08:27→21:13)
[2019-11-24] MEDS: methylPREDNISolone SOD SUCCI 40 MG/ML 1 ML VIAL IV SCH (08:27)
[2019-11-24] MEDS: ZINC SULFATE 220 MG CAP PO SCH (08:28)
[2019-11-24] MEDS: BENZONATATE 100 MG CAP PO SCH ×3 (08:28→21:13)
[2019-11-24 08:43] LABS: Basophils % (A) 0 %; Eosinophils # (A) 0.1 k/uL (0-0.7); Eosinophils % (A) 1 %; HCT 37.7 % (34.0-46.0); HGB 11.8 gm/dL (11.4-16.0); Hypochromasia Slight; Lymphocytes # (A) 1.4 k/uL (1.0-4.8); Lymphocytes % (A) 22 %; MCH 28.5 pg (25.0-35.0); MCHC 31.3 g/dL (31.0-37.0); MCV 91.2 fL (80.0-100.0); Mean Platelet Volume 9.3; Monocytes # (A) 0.5 k/uL (0-1.0); Monocytes % (A) 7 %; Neutrophils # (A) 4.4 k/uL (1.3-7.7); Neutrophils % (A) 66 %; Platelet Count 406 k/uL (150-450); RBC 4.13 m/uL (3.80-5.40); RDW 12.4 % (11.5-15.5); WBC 6.6 k/uL (3.8-10.6)
[2019-11-24 12:19] LABS: Glucose,Whole Blood 109 mg/dL (75-99)
--- NOTE | 2019-11-24 13:18 | P.PN ---
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 Patient lives in [place], and on 11/07/2019 she presented to the emergency department with complaints of persistent cough, shortness of breath. She denies any overt chills, sweats, dyspnea is exertional and at rest. Patient has no known history of hypertension, heart or chronic lung disease, she is a nonsmoker. No other major medical issues except for fibromyalgia. Does report a pulse ox in the high 80s at around 88% at home. She was placed on supplemental oxygen by the paramedics on the way to the hospital. She reports nausea and vomiting. She reports an episode of syncope at home. Her blood pressure was 90/50 on arrival, she was given a small amount of IV fluid bolus, to which she responded well with improvement in her blood pressure. Chest x-ray showed mild patchy and lower lung infiltrates, left greater than right. Her lab work on admission showed unremarkable CBC, no signs of leukocytosis, or lymphocytosis, hemoglobin was 13.2, with blood cell count is 4.6, d-dimer was 0.72, sodium was 1:30, potassium 3.9, chloride is 95, CO2 is 26, BUN is 11, creatinine 0.85. Ferritin level was 229, AST was 76, ALT was 42, alkaline phosphatase was 69, LDH was 669, CRP was 19, Protonix and was 0.06. She was started on combination of Zithromax, Plaquenil, zinc and IV steroids. Zosyn was added to antibiotic coverage by the attending physician for possibility of secondary bacterial pneumonia as the patient has been coughing up some yellow sputum. Blood culture has shown no growth, today's chest x-ray showed perihilar and basilar mixed infiltrates persist is without significant interval change. Patient is awake and alert, she is currently on 2 L of oxygen her pulse ox is 92-94%, she still has a persistent cough, respirations are nonlabored, she has been afebrile. Follow-up d-dimer was drawn and was less than 0.17, ferritin is not elevated at 254, and LDH is 837. Pro-calcitonin was negative on admission and 0.06. Patient's daughter is an ICU nurse at this hospital, and we were r equested to see this patient in evaluation for Covid 19 related pneumonia On 11/22/2019 patient seen in follow-up on a general medical floor. She is still coughing, still has some exertional dyspnea, she is on 2 L of oxygen with a pulse ox of 90-92%, she is afebrile. Blood and sputum cultures have shown no growth so far, hemodynamically patient remains stable. Today's labs have been reviewed, with blood cell count is improved, and is up to 12.2, hemoglobin is 13.3, d-dimer was negative at less than 0.17, electrolytes and renal profile were unremarkable, AST is improved and is down to 53, ALT is relatively stable, slightly up to 49. LDH is up to 934, and CRP is down to 12.6, pro-calcitonin level was negative at 0.6. Hemodynamically patient is stable, no altered mentation. Echocardiogram was done showing EF between 55-60% trace mitral regurg, mild tricuspid regurg, mild pulmonary hypertension with right-sided pressures of 39 mmHg. There was trivial amount of pericardial effusion. Patient is on oral Zithromax, IV steroids, she has completed her Plaquenil. On 11/23/2019 patient seen in follow-up on the general medical floor, she still has a persistent cough, and she is very nauseous, and has been vomiting. She is currently on 2 L of oxygen and her pulse ox is 94-97%, she has been afebrile, no worsening dyspnea. Today's labs have been reviewed, CBC is within normal limit s, electrolytes and renal profile are unremarkable, AST and ALT are improving, at 37 and 44 respectively, alkaline phosphatase is within normal limits, pro- calcitonin was negative, and patient is currently on oral Zithromax, IV steroids, zinc for treatment of Covid 19 infection, she has completed her Plaquenil On 11/24/2019 patient seen in follow-up on general medical floor, she still having the persistent cough, persistent exertional dyspnea, her pulse ox is only 90% on 2 L, vital signs are stable, she's been afebrile. Today's labs have been reviewed, CBC is within normal limits, d-dimer is within normal limits at 0.41, sodium is 134, potassium 3.9, CO2 32, BUN is 20, creatinine 0.67, LDH is 607, CRP is 5.2. Blood and sputum cultures are negative. Continues on azithromycin, IV steroids. She is on Zofran and Tigan for nausea. Objective - Vital Signs Vital signs: Vital Signs Temp 97.8 F 11/24/19 10:55 Pulse 70 11/24/19 10:55 Resp 16 11/24/19 10:55 BP 107/68 11/24/19 10:55 Pulse Ox 95 11/24/19 10:55 Intake & Output 11/23/19 11/24/19 11/24/19 18:59 06:59 18:59 Other: Voiding Method Toilet Toilet # Voids 2 1 - Exam GENERAL EXAM: Alert, very pleasant, 59-year-old -[place] female, on 2 L of oxygen with a pulse ox of 90%, complaining of persistent cough, nausea and vomiting HEAD: Normocephalic/atraumatic. EYES: Normal reaction of pupils, equal size. Conjunctiva pink, sclera white. NOSE: Clear with pink turbinates. THROAT: No erythema or exudates. NECK: No masses, no JVD, no thyroid enlargement, no adenopathy. CHEST: No chest wall deformity. Symmetrical expansion. LUNGS: Equal air entry with no crackles, wheeze, rhonchi or dullness. CVS: Regular rate and rhythm, normal S1 and S2, no gallops, no murmurs, no rubs ABDOMEN: Soft, nontender. No hepatosplenomegaly, normal bowel sounds, no guarding or rigidity. EXTREMITIES: No clubbing, no edema, no cyanosis, 2+ pulses and upper and lower extremities. MUSCULOSKELETAL: Muscle strength and tone normal. SPINE: No scoliosis or deformity SKIN: No rashes CENTRAL NERVOUS SYSTEM: Alert and oriented -3. No focal deficits, tone is normal in all 4 extremities. PSYCHIATRIC: Alert and oriented -3. Appropriate affect. Intact judgment and insight. - Labs CBC & Chem 7: 11/24/19 06:50 11/24/19 06:50 Labs: Abnormal Lab Results - Last 24 Hours (Table) 11/23/19 11/23/19 11/24/19 Range/Units 16:40 20:20 06:50 Sodium 134 L (137-145) mmol/L Carbon Dioxide 32 H (22-30) mmol/L BUN 20 H (7-17) mg/dL POC Glucose (mg/dL) 107 H 132 H (75-99) mg/dL ALT 40 H (4-34) U/L Total Protein 5.5 L (6.3-8.2) g/dL Albumin 2.7 L (3.5-5.0) g/dL 11/24/19 Range/Units 12:17 Sodium (137-145) mmol/L Carbon Dioxide (22-30) mmol/L BUN (7-17) mg/dL POC Glucose (mg/dL) 109 H (75-99) mg/dL ALT (4-34) U/L Total Protein (6.3-8.2) g/dL Albumin (3.5-5.0) g/dL Microbiology - Last 24 Hours (Table) 11/17/19 13:17 Blood Culture - Final Blood No Growth after 144 hours 11/21/19 11:12 Gram Stain - Final Sputum Sputum Culture - Final Assessment and Plan Plan: Assessment: #1. Acute hypoxic respiratory failure related to COVID19 related pneumonia, patient developed symptoms of cough or shortness of breath on 11/12/2019, she was tested positive for COVID 19 on 11/15/2019, and presented to the hospital on 11/17/2019 with complaints of shortness of breath, cough, nausea vomiting and syncopal episode. #2. A brief syncopal episode at home likely related to orthostatic hypotension, secondary to nausea and vomiting, and possibility of vasovagal episode #3. Borderline hypotension on admission, related to hypovolemia secondary to nausea and vomiting, improved with IV hydration #4. Mildly elevated inflammatory markers including LDH and CRP, related to Covid 19 infection #5. Mildly elevated d-dimer, normalized #6. History of fibromyalgia #7. GERD/reflux #8. Anxiety #9. Never smoker Plan: Continue current medical treatment, still requiring supplemental oxygen, still having continued exertional dyspnea, continue current treatment, patient has completed Plaquenil, remains on azithromycin and IV steroids. Continue Tigan and Zofran. Overall clinically improving, lymphopenia is improving, vital signs are stable, we'll continue to monitor. I performed a history & physical examination of the patient and discussed their management with my nurse practitioner, Stephanie Gleason. I reviewed the nurse practitioner's note and agree with the documented findings and plan of care. Lung sounds are positive for diminished breath sounds at the bases. The findings and the impression was discussed with the patient. I attest to the documentation by the nurse practitioner. Time with Patient: Less than 30
[2019-11-24 14:12] VITALS: BMI 28.4
[2019-11-24] MEDS: AZITHROMYCIN 500 MG TAB PO SCH (15:02)
--- NOTE | 2019-11-24 16:44 | P.PN ---
Subjective 59-year-old -[place] female with a history of fibromyalgia, GERD, and anxiety who presented to the emergency department with complaints of coughing and shortness of breath. 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 Infectious disease was consulted and she was started on Zithromax, Plaquenil, IV steroids, and zinc. She was also seen by pulmonary. Initial laboratory analysis had showed a d-d tana of 0.72 which had normalized by 11/19, LDH is 669 which has been elevating, CRP of 19 which back to 21.4 and then normalized at 6.5. Liver enzymes mildly elevated but have been down trending. Ferritin of 254. She had some worsening of her chest x-ray on 11/19 with worsening left-sided infiltrate and Zosyn was added and then removed by pulmonary. On 11/21 her HR elevated to 100-120 with ambulation. Repeat chest x-ray on 11/22 showed worsening pneumonia. 11/23 Patient was seen and examined by me today. She still very dyspneic with minimal exertion. She is complaining of a dry cough. She denies fevers or chills Objective - Vital Signs Vital signs: Vital Signs Temp 97.9 F 11/24/19 14:40 Pulse 83 11/24/19 14:40 Resp 16 11/24/19 14:40 BP 94/58 11/24/19 14:40 Pulse Ox 94 L 11/24/19 14:40 Intake & Output 11/23/19 11/24/19 11/24/19 18:59 06:59 18:59 Intake Total 500 Balance 500 Weight 77.564 kg Intake: Oral 500 Other: Voiding Method Toilet Toilet # Voids 2 1 - Exam General: The patient is awake and alert, in no distress Eye: there is normal conjunctiva bilaterally. Neck: The neck is supple, there is no JVD. Cardiovascular: Normal S1-S2, no S3-S4, no murmurs. Respiratory: Coarse lung sounds with diminished air movement Gastrointestinal: Abdomen is soft, nontender Musculoskeletal: There is no pedal edema. Neurological:. Speech is normal. Skin: Skin is warm and dry - Labs CBC & Chem 7: 11/24/19 06:50 11/24/19 06:50 Labs: Abnormal Lab Results - Last 24 Hours (Table) 11/23/19 11/23/19 11/24/19 Range/Units 16:40 20:20 06:50 Sodium 134 L (137-145) mmol/L Carbon Dioxide 32 H (22-30) mmol/L BUN 20 H (7-17) mg/dL POC Glucose (mg/dL) 107 H 132 H (75-99) mg/dL ALT 40 H (4-34) U/L Total Protein 5.5 L (6.3-8.2) g/dL Albumin 2.7 L (3.5-5.0) g/dL 11/24/19 Range/Units 12:17 Sodium (137-145) mmol/L Carbon Dioxide (22-30) mmol/L BUN (7-17) mg/dL POC Glucose (mg/dL) 109 H (75-99) mg/dL ALT (4-34) U/L Total Protein (6.3-8.2) g/dL Albumin (3.5-5.0) g/dL Microbiology - Last 24 Hours (Table) 11/17/19 13:17 Blood Culture - Final Blood No Growth after 144 hours Assessment and Plan Assessment: Assessment: Covid-19 pneumonia with acute hypoxic respiratory failure - LDH, CRP trending down back to normal - Procalcitonin negative - Zosyn stopped - ID recs - Pulm recs appreciated - Completed plaquinil - Zithromax per ID - Zinc - wean o2 as able - cough supressants - Solumedrol -sputum culture if able - bronchodilators - follow CXR COVID gastroenteritis - supportive care. Change from zofran to Phenergan Transaminitis, related to above -Continue to follow liver enzymes Syncope - Tele without significant events - QtC normal - echo with preserved EF Leukocytosis, resolved DVT prophylaxis: Lovenox Discussed with: Patient, nursing Anticipated discharge: 1-[address]: home A total of 35 minutes was spent on the care of this complex patient more than 50% of the time was spent in counseling and care coordination.
[2019-11-24 17:15] LABS: Glucose,Whole Blood 119 mg/dL (75-99)
[2019-11-24 20:12] LABS: Glucose,Whole Blood 127 mg/dL (75-99)
[2019-11-24] MEDS: CALCIUM CARBONATE 500 MG CHEWABLE PO PRN (21:16)
--- NOTE | 2019-11-24 22:47 | PN ---
PROGRESS NOTE DATE OF SERVICE: 11/24/2019 REASON FOR FOLLOWUP: COVID-19 infection. INTERVAL HISTORY: The patient is currently afebrile. She is still complaining of some shortness of breath and cough which has been dry, not bringing up any sputum. Some nausea but no vomiting. No abdominal pain or any diarrhea. PHYSICAL EXAMINATION: Blood pressure is 100/65, pulse 96, temperature 97.5. She is 92% on room air. General description is a middle-aged female up in the bed in no distress. RESPIRATORY SYSTEM: Unlabored breathing. Some coarse crackles at the bases. No wheeze. HEART: S1, S2. Regular rate and rhythm. LABS: Hemoglobin 11.8, white count 6.6, BUN of 20, creatinine 0.67. DIAGNOSTIC IMPRESSION AND PLAN: Patient with acute COVID-19 infection in this patient who seems to have some clinical improvement. The patient has been slowly weaned off the oxygen. She has completed her Plaquenil therapy, currently on Zithromax; to continue and monitor clinical course closely. MMODL / IJN: [id number] /
[2019-11-25] MEDS: ALBUTEROL HFA INHALER INHALATION SCH ×6 (02:03→20:10)
[2019-11-25 07:26] LABS: Glucose,Whole Blood 83 mg/dL (75-99)
[2019-11-25] MEDS: INSULIN ASPART (NovoLOG) 100 UNIT/ML VIAL SQ SCH ×4 (08:47→20:17)
[2019-11-25] MEDS: ZINC SULFATE 220 MG CAP PO SCH (09:08)
[2019-11-25] MEDS: ENOXAPARIN 40 MG/0.4 ML SYRINGE SQ SCH ×2 (09:08→20:17)
[2019-11-25] MEDS: methylPREDNISolone SOD SUCCI 40 MG/ML 1 ML VIAL IV SCH (09:09)
[2019-11-25] MEDS: BENZONATATE 100 MG CAP PO SCH ×3 (09:09→22:40)
[2019-11-25 11:46] LABS: Glucose,Whole Blood 115 mg/dL (75-99)
--- NOTE | 2019-11-25 13:33 | P.PN ---
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 Patient lives in [place], and on 11/07/2019 she presented to the emergency department with complaints of persistent cough, shortness of breath. She denies any overt chills, sweats, dyspnea is exertional and at rest. Patient has no known history of hypertension, heart or chronic lung disease, she is a nonsmoker. No other major medical issues except for fibromyalgia. Does report a pulse ox in the high 80s at around 88% at home. She was placed on supplemental oxygen by the paramedics on the way to the hospital. She reports nausea and vomiting. She reports an episode of syncope at home. Her blood pressure was 90/50 on arrival, she was given a small amount of IV fluid bolus, to which she responded well with improvement in her blood pressure. Chest x-ray showed mild patchy and lower lung infiltrates, left greater than right. Her lab work on admission showed unremarkable CBC, no signs of leukocytosis, or lymphocytosis, hemoglobin was 13.2, with blood cell count is 4.6, d-dimer was 0.72, sodium was 1:30, potassium 3.9, chloride is 95, CO2 is 26, BUN is 11, creatinine 0.85. Ferritin level was 229, AST was 76, ALT was 42, alkaline phosphatase was 69, LDH was 669, CRP was 19, Protonix and was 0.06. She was started on combination of Zithromax, Plaquenil, zinc and IV steroids. Zosyn was added to antibiotic coverage by the attending physician for possibility of secondary bacterial pneumonia as the patient has been coughing up some yellow sputum. Blood culture has shown no growth, today's chest x-ray showed perihilar and basilar mixed infiltrates persist is without significant interval change. Patient is awake and alert, she is currently on 2 L of oxygen her pulse ox is 92-94%, she still has a persistent cough, respirations are nonlabored, she has been afebrile. Follow-up d-dimer was drawn and was less than 0.17, ferritin is not elevated at 254, and LDH is 837. Pro-calcitonin was negative on admission and 0.06. Patient's daughter is an ICU nurse at this hospital, and we were r equested to see this patient in evaluation for Covid 19 related pneumonia On 11/22/2019 patient seen in follow-up on a general medical floor. She is still coughing, still has some exertional dyspnea, she is on 2 L of oxygen with a pulse ox of 90-92%, she is afebrile. Blood and sputum cultures have shown no growth so far, hemodynamically patient remains stable. Today's labs have been reviewed, with blood cell count is improved, and is up to 12.2, hemoglobin is 13.3, d-dimer was negative at less than 0.17, electrolytes and renal profile were unremarkable, AST is improved and is down to 53, ALT is relatively stable, slightly up to 49. LDH is up to 934, and CRP is down to 12.6, pro-calcitonin level was negative at 0.6. Hemodynamically patient is stable, no altered mentation. Echocardiogram was done showing EF between 55-60% trace mitral regurg, mild tricuspid regurg, mild pulmonary hypertension with right-sided pressures of 39 mmHg. There was trivial amount of pericardial effusion. Patient is on oral Zithromax, IV steroids, she has completed her Plaquenil. On 11/23/2019 patient seen in follow-up on the general medical floor, she still has a persistent cough, and she is very nauseous, and has been vomiting. She is currently on 2 L of oxygen and her pulse ox is 94-97%, she has been afebrile, no worsening dyspnea. Today's labs have been reviewed, CBC is within normal limit s, electrolytes and renal profile are unremarkable, AST and ALT are improving, at 37 and 44 respectively, alkaline phosphatase is within normal limits, pro- calcitonin was negative, and patient is currently on oral Zithromax, IV steroids, zinc for treatment of Covid 19 infection, she has completed her Plaquenil On 11/24/2019 patient seen in follow-up on general medical floor, she still having the persistent cough, persistent exertional dyspnea, her pulse ox is only 90% on 2 L, vital signs are stable, she's been afebrile. Today's labs have been reviewed, CBC is within normal limits, d-dimer is within normal limits at 0.41, sodium is 134, potassium 3.9, CO2 32, BUN is 20, creatinine 0.67, LDH is 607, CRP is 5.2. Blood and sputum cultures are negative. Continues on azithromycin, IV steroids. She is on Zofran and Tigan for nausea. On 11/25/2019 patient seen in follow-up on general medical floor, she is improving, although still has quite significant exertional dyspnea, fatigue, but nausea and vomiting have improved, oxygenation has improved, patient is satting 97% on 2 L. Normal chest x-rays today, which at her follow-up inflammatory markers yesterday, d-dimer was within normal limits at 0.41, LDH is down to 607, and CRP is 5.2, patient has been afebrile, she remains on IV Solu-Medrol at 40 mg daily, she has completed her treatment with Plaquenil, remains on azithromycin, overall clinically improving Objective - Vital Signs Vital signs: Vital Signs Temp 98.3 F 11/25/19 10:45 Pulse 85 11/25/19 10:45 Resp 16 11/25/19 10:45 BP 101/60 11/25/19 10:45 Pulse Ox 97 11/25/19 10:45 Intake & Output 11/24/19 11/25/19 11/25/19 18:59 06:59 18:59 Intake Total 500 Balance 500 Weight 77.564 kg Intake: Oral 500 Other: Voiding Method Toilet Toilet # Voids 2 - Exam GENERAL EXAM: Alert, very pleasant, 59-year-old -[place] female, on 2 L of oxygen with a pulse ox of 97%, complaining of significant exertional dyspnea, nausea vomiting and cough improving HEAD: Normocephalic/atraumatic. EYES: Normal reaction of pupils, equal size. Conjunctiva pink, sclera white. NOSE: Clear with pink turbinates. THROAT: No erythema or exudates. NECK: No masses, no JVD, no thyroid enlargement, no adenopathy. CHEST: No chest wall deformity. Symmetrical expansion. LUNGS: Equal air entry with no crackles, wheeze, rhonchi or dullness. CVS: Regular rate and rhythm, normal S1 and S2, no gallops, no murmurs, no rubs ABDOMEN: Soft, nontender. No hepatosplenomegaly, normal bowel sounds, no guarding or rigidity. EXTREMITIES: No clubbing, no edema, no cyanosis, 2+ pulses and upper and lower extremities. MUSCULOSKELETAL: Muscle strength and tone normal. SPINE: No scoliosis or deformity SKIN: No rashes CENTRAL NERVOUS SYSTEM: Alert and oriented -3. No focal deficits, tone is normal in all 4 extremities. PSYCHIATRIC: Alert and oriented -3. Appropriate affect. Intact judgment and insight. - Labs CBC & Chem 7: 11/24/19 06:50 11/24/19 06:50 Labs: Abnormal Lab Results - Last 24 Hours (Table) 11/24/19 11/24/19 11/25/19 Range/Units 17:13 20:05 11:45 POC Glucose (mg/dL) 119 H 127 H 115 H (75-99) mg/dL Assessment and Plan Plan: Assessment: #1. Acute hypoxic respiratory failure related to COVID19 related pneumonia, patient developed symptoms of cough or shortness of breath on 11/12/2019, she was tested positive for COVID 19 on 11/15/2019, and presented to the hospital on 11/17/2019 with complaints of shortness of breath, cough, nausea vomiting and syncopal episode. #2. A brief syncopal episode at home likely related to orthostatic hypotension, secondary to nausea and vomiting, and possibility of vasovagal episode #3. Borderline hypotension on admission, related to hypovolemia secondary to nausea and vomiting, improved with IV hydration #4. Mildly elevated inflammatory markers including LDH and CRP, related to Covid 19 infection #5. Mildly elevated d-dimer, normalized #6. History of fibromyalgia #7. GERD/reflux #8. Anxiety #9. Never smoker Plan: Patient is improving, oxygenation is improving, obtain room air pulse ox, her cough, nausea and vomiting improved, still complains of significant exertional dyspnea, follow-up chest x-ray in the morning, follow-up labs in the morning, continue current medical treatment, possibly home in the next 24 hours, this was discussed with the patient and her daughter who are in agreement. I performed a history & physical examination of the patient and discussed their management with my nurse practitioner, Stephanie Gleasno. I reviewed the nurse practitioner's note and agree with the documented findings and plan of care. Lung sounds are positive for diminished breath sounds at the bases. The findings and the impression was discussed with the patient. I attest to the documentation by the nurse practitioner. Time with Patient: Less than 30
[2019-11-25] MEDS: AZITHROMYCIN 500 MG TAB PO SCH (15:36)
[2019-11-25 17:03] LABS: Glucose,Whole Blood 141 mg/dL (75-99)
[2019-11-25 20:11] LABS: Glucose,Whole Blood 133 mg/dL (75-99)
--- NOTE | 2019-11-25 20:44 | P.PN ---
Subjective Progress Note Date: 11/25/19 (delayed charting seen at 1300) Principal diagnosis: shortness of breath Patient is a 59-year-old -[place] female with a history of fibromyalgia, GERD, and anxiety who presented to the emergency department with complaints of coughing and shortness of breath. 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 On admission she was found have bilateral pneumonia. Infectious disease was consulted and she was started on Zithromax, Plaquenil, IV steroids, and zinc. She was also seen by pulmonary. Initial laboratory analysis had showed a d-dimer of 0.72 which had normalized by 11/19, LDH is 669 which has been elevating, CRP of 19 which back to 21.4 and then normalized at 6.5. Liver en zymes mildly elevated but have been down trending. Ferritin of 254. She had some worsening of her chest x-ray on 11/19 with worsening left-sided infiltrate and Zosyn was added and then removed by pulmonary. On 11/21 her HR elevated to 100-120 with ambulation. Repeat chest x-ray on 11/22 showed worsening pneumonia. She continued to progress well. Echo with preserved ejection fraction. Patient seen and examined at bedside. Nausea and vomiting is resolved, shortness of breath is slowly improving, tachycardia improving, feeling better overall. Anxious to go home. Objective - Vital Signs Vital signs: Vital Signs Temp 98.3 F 11/25/19 10:55 Pulse 85 11/25/19 10:55 Resp 16 11/25/19 10:55 BP 101/60 11/25/19 10:55 Pulse Ox 97 11/25/19 10:55 Intake & Output 11/25/19 11/25/19 11/26/19 06:59 18:59 06:59 Other: Voiding Method Toilet Toilet # Voids 2 2 - Exam General: ill appearing, no distress, appears at stated age Derm: warm, dry Head: atraumatic, normocephalic, symmetric Eyes: EOMI, no lid lag, anicteric sclera Mouth: no lip lesion, mucus membranes dry Cardiovascular: S1S2 tachy, no murmur, positive posterior tibial pulse bilateral, Lungs: Crackles bilateral, no rhonchi, no rales , no accessory muscle use, 3 word conversational dyspnea Ext: no gross muscle atrophy, no edema, no contractures Neuro: CN II-XI grossly intact, no focal neuro deficits Psych: Alert, oriented, appropriate affect - Labs CBC & Chem 7: 11/24/19 06:50 11/24/19 06:50 Labs: Abnormal Lab Results - Last 24 Hours (Table) 11/25/19 11/25/19 11/25/19 Range/Units 11:45 17:01 20:08 POC Glucose (mg/dL) 115 H 141 H 133 H (75-99) mg/dL Assessment and Plan Assessment: Covid-19 pneumonia with acute hypoxic respiratory failure - ID recs - Pulm recs appreciated - Completed plaquinil - Zithromax per ID - Zinc - wean o2 as able - cough supressants - Solumedrol to po - bronchodilators - follow CXR COVID gastroenteritis - improved Transaminitis, related to above, improving -Continue to follow liver enzymes Syncope - Tele without significant events - QtC normal - echo with preserved EF Leukocytosis, resolved DVT prophylaxis: Lovenox Discussed with: Patient, nursing, Dr. Oconnell Anticipated discharge: in AM Anticipated discharge place: home A total of 25 minutes was spent on the care of this complex patient more than 50 % of the time was spent in counseling and care coordination.
--- NOTE | 2019-11-25 23:04 | PN ---
PROGRESS NOTE DATE OF SERVICE: 11/25/2019 REASON FOR FOLLOWUP: Acute COVID-19 infection. INTERVAL HISTORY: The patient is currently afebrile. She is breathing comfortably. The patient continues to have a dry hacking cough. No sputum. No chest pain. No nausea or vomiting. No abdominal pain or diarrhea. PHYSICAL EXAMINATION: Blood pressure 106/71 with a pulse of 95, temperature 97.5. She is 95% on 2 L nasal cannula. General description is a middle-aged female up in the chair in no distress. RESPIRATORY SYSTEM: Unlabored breathing with decreased intensity of breath sounds. HEART: S1, S2. Regular rate and rhythm. LABS: Sputum culture has been usual respiratory johanny. No blood work was done. DIAGNOSTIC IMPRESSION AND PLAN: Patient with acute COVID-19 pneumonia in this patient who seems to have shown overall clinical improvement. She has completed her Plaquenil therapy, currently on Zithromax, steroids; to continue along with zinc and monitor her clinical course closely. MMODL / IJN: [id number] /
[2019-11-26] MEDS: ALBUTEROL HFA INHALER INHALATION SCH ×7 (01:07→23:45)
[2019-11-26 07:09] LABS: Glucose,Whole Blood 92 mg/dL (75-99)
--- NOTE | 2019-11-26 07:39 | XR ---
EXAMINATION TYPE: XR chest 1V portable DATE OF EXAM: 11/26/2019 HISTORY: Covid 19. REFERENCE: Previous study dated 11/23/2019. FINDINGS: There is improved aeration of both lungs. Heart size is mildly prominent. I suspect a small left effusion. IMPRESSION: IMPROVED AERATION, BOTH LUNGS.
[2019-11-26 08:20] LABS: C Reactive Protein 10.2 mg/L (<10.0)
[2019-11-26] MEDS: INSULIN ASPART (NovoLOG) 100 UNIT/ML VIAL SQ SCH ×4 (08:26→20:50)
[2019-11-26] MEDS: methylPREDNISolone 4 MG TAB TAPER PO SCH (08:51)
[2019-11-26] MEDS: ENOXAPARIN 40 MG/0.4 ML SYRINGE SQ SCH ×2 (08:51→20:50)
[2019-11-26] MEDS: BENZONATATE 100 MG CAP PO SCH ×3 (08:52→20:50)
[2019-11-26] MEDS: ZINC SULFATE 220 MG CAP PO SCH (08:52)
[2019-11-26 11:32] LABS: Glucose,Whole Blood 78 mg/dL (75-99)
--- NOTE | 2019-11-26 11:48 | P.PN ---
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 Patient lives in [place], and on 11/07/2019 she presented to the emergency department with complaints of persistent cough, shortness of breath. She denies any overt chills, sweats, dyspnea is exertional and at rest. Patient has no known history of hypertension, heart or chronic lung disease, she is a nonsmoker. No other major medical issues except for fibromyalgia. Does report a pulse ox in the high 80s at around 88% at home. She was placed on supplemental oxygen by the paramedics on the way to the hospital. She reports nausea and vomiting. She reports an episode of syncope at home. Her blood pressure was 90/50 on arrival, she was given a small amount of IV fluid bolus, to which she responded well with improvement in her blood pressure. Chest x-ray showed mild patchy and lower lung infiltrates, left greater than right. Her lab work on admission showed unremarkable CBC, no signs of leukocytosis, or lymphocytosis, hemoglobin was 13.2, with blood cell count is 4.6, d-dimer was 0.72, sodium was 1:30, potassium 3.9, chloride is 95, CO2 is 26, BUN is 11, creatinine 0.85. Ferritin level was 229, AST was 76, ALT was 42, alkaline phosphatase was 69, LDH was 669, CRP was 19, Protonix and was 0.06. She was started on combination of Zithromax, Plaquenil, zinc and IV steroids. Zosyn was added to antibiotic coverage by the attending physician for possibility of secondary bacterial pneumonia as the patient has been coughing up some yellow sputum. Blood culture has shown no growth, today's chest x-ray showed perihilar and basilar mixed infiltrates persist is without significant interval change. Patient is awake and alert, she is currently on 2 L of oxygen her pulse ox is 92-94%, she still has a persistent cough, respirations are nonlabored, she has been afebrile. Follow-up d-dimer was drawn and was less than 0.17, ferritin is not elevated at 254, and LDH is 837. Pro-calcitonin was negative on admission and 0.06. Patient's daughter is an ICU nurse at this hospital, and we were requested to see this patient in evaluation for Covid 19 related pneumonia On 11/22/2019 patient seen in follow-up on a general medical floor. She is still coughing, still has some exertional dyspnea, she is on 2 L of oxygen with a pulse ox of 90-92%, she is afebrile. Blood and sputum cultures have shown no growth so far, hemodynamically patient remains stable. Today's labs have been reviewed, with blood cell count is improved, and is up to 12.2, hemoglobin is 13.3, d-dimer was negative at less than 0.17, electrolytes and renal profile were unremarkable, AST is improved and is down to 53, ALT is relatively stable, slightly up to 49. LDH is up to 934, and CRP is down to 12.6, pro-calcitonin level was negative at 0.6. Hemodynamically patient is stable, no altered mentation. Echocardiogram was done showing EF between 55-60% trace mitral regurg, mild tricuspid regurg, mild pulmonary hypertension with right-sided pres sures of 39 mmHg. There was trivial amount of pericardial effusion. Patient is on oral Zithromax, IV steroids, she has completed her Plaquenil. On 11/23/2019 patient seen in follow-up on the general medical floor, she still has a persistent cough, and she is very nauseous, and has been vomiting. She is currently on 2 L of oxygen and her pulse ox is 94-97%, she has been afebrile, no worsening dyspnea. Today's labs have been reviewed, CBC is within normal limits, electrolytes and renal profile are unremarkable, AST and ALT are improving, at 37 and 44 respectively, alkaline phosphatase is within normal limits, pro-calcitonin was negative, and patient is currently on oral Zithromax, IV steroids, zinc for treatment of Covid 19 infection, she has completed her Plaquenil On 11/24/2019 patient seen in follow-up on general medical floor, she still having the persistent cough, persistent exertional dyspnea, her pulse ox is only 90% on 2 L, vital signs are stable, she's been afebrile. Today's labs have been reviewed, CBC is within normal limits, d-dimer is within normal limits at 0.41, sodium is 134, potassium 3.9, CO2 32, BUN is 20, creatinine 0.67, LDH is 607, CRP is 5.2. Blood and sputum cultures are negative. Continues on azithromycin, IV steroids. She is on Zofran and Tigan for nausea. On 11/25/2019 patient seen in follow-up on general medical floor, she is improving, although still has quite significant exertional dyspnea, fatigue, but nausea and vomiting have improved, oxygenation has improved, patient is satting 97% on 2 L. Normal chest x-rays today, which at her follow-up inflammatory markers yesterday, d-dimer was within normal limits at 0.41, LDH is down to 607, and CRP is 5.2, patient has been afebrile, she remains on IV Solu-Medrol at 40 mg daily, she has completed her treatment with Plaquenil, remains on azithromycin, overall clinically improving The patient is seen today 11/26/2019 in follow-up on the regular medical floor. She is awake and alert in no acute distress. She is breathing easier today compared to yesterday. Still with some dyspnea on exertion. Still with some dry cough. Oxygen saturations in the 80s on room air with activity. Recovered into the 90s on 2 L of nasal cannula. She's been afebrile. Hemodynamically stable. Blood cultures reveal no growth. Sputum culture reveals no growth. LDH 639. C-reactive protein 10.2. Continued on azithromycin. IV Solu-Medrol. Promethazine. Chest x-ray shows improved aeration bilaterally. Objective - Vital Signs Vital signs: Vital Signs Temp 98.1 F 11/26/19 11:09 Pulse 86 11/26/19 11:09 Resp 26 H 11/26/19 11:09 BP 125/67 11/26/19 11:09 Pulse Ox 93 L 11/26/19 11:09 Intake & Output 11/25/19 11/26/19 11/26/19 18:59 06:59 18:59 Intake Total 20 Balance 20 Intake: Oral 20 Other: Voiding Method Toilet # Voids 2 - Exam GENERAL EXAM: Alert, active, very pleasant 59-year-old female patient, on 2 L nasal cannula, comfortable in no apparent distress. HEAD: Normocephalic. EYES: Normal reaction of pupils, equal size. NOSE: Clear with pink turbinates. THROAT: No erythema or exudates. NECK: No masses, no JVD. CHEST: No chest wall deformity. LUNGS: Equal air entry with few scattered rhonchi. CVS: S1 and S2 normal with no audible murmur, regular rhythm. ABDOMEN: No hepatosplenomegaly, normal bowel sounds, no guarding or rigidity. SPINE: No scoliosis or deformity SKIN: No rashes CENTRAL NERVOUS SYSTEM: No focal deficits, tone is normal in all 4 extremities. EXTREMITIES: There is no peripheral edema. No clubbing, no cyanosis. Peripheral pulses are intact. - Labs CBC & Chem 7: 11/24/19 06:50 11/24/19 06:50 Labs: Abnormal Lab Results - Last 24 Hours (Table) 11/25/19 11/25/19 11/25/19 Range/Units 11:45 17:01 20:08 POC Glucose (mg/dL) 115 H 141 H 133 H (75-99) mg/dL Lactate Dehydrogenase (313-618) U/L C-Reactive Protein (<10.0) mg/L 11/26/19 Range/Units 07:15 POC Glucose (mg/dL) (75-99) mg/dL Lactate Dehydrogenase 639 H (313-618) U/L C-Reactive Protein 10.2 H (<10.0) mg/L Assessment and Plan Assessment: #1. Acute hypoxic respiratory failure related to COVID19 related pneumonia, patient developed symptoms of cough or shortness of breath on 11/12/2019, she was tested positive for COVID 19 on 11/15/2019, and presented to the hospital on 11/17/2019 with complaints of shortness of breath, cough, nausea vomiting and syncopal episode. #2. A brief syncopal episode at home likely related to orthostatic hypotension, secondary to nausea and vomiting, and possibility of vasovagal episode #3. Borderline hypotension on admission, related to hypovolemia secondary to nausea and vomiting, improved with IV hydration #4. Mildly elevated inflammatory markers including LDH and CRP, related to Covid 19 infection #5. Mildly elevated d-dimer, normalized #6. History of fibromyalgia #7. GERD/reflux #8. Anxiety #9. Never smoker Plan: The patient was seen and evaluated by Dr. Artinian Chest x-ray and labs reviewed Still not quite ready for discharge Still requiring oxygen to maintain O2 saturations in the 90 Continue with the current treatment plan Increase her activity as tolerated We'll continue to follow I, the cosigning physician, performed a history & physical examination of the patient. Lungs sounds with few scattered rhonchi bilaterally. Maintaining good O2 saturations in the 90s on 2 L/m per nasal cannula. I discussed the assessment and plan of care with my nurse practitioner, Dianna Pollock. I attest to the above note as dictated by her.
[2019-11-26 16:41] LABS: Glucose,Whole Blood 134 mg/dL (75-99)
--- NOTE | 2019-11-26 17:18 | P.PN ---
Subjective Progress Note Date: 11/26/19 (delayed charting seen at 1157) Principal diagnosis: shortness of breath Patient is a 59-year-old -A[place]ij[place] female with a history of fibromyalgia, GERD, and anxiety who presented to the emergency department with complaints of coughing and shortness of breath. 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 On admission she was found have bilateral pneumonia. Infectious disease was consulted and she was started on Zithromax, Plaquenil, IV steroids, and zinc. She was also seen by pulmonary. Initial laboratory analysis had showed a d-dimer of 0.72 which had normalized by 11/19, LDH is 669 which has been elevating, CRP of 19 which back to 21.4 and then normalized at 6.5. Liver en zymes mildly elevated but have been down trending. Ferritin of 254. She had some worsening of her chest x-ray on 11/19 with worsening left-sided infiltrate and Zosyn was added and then removed by pulmonary. On 11/21 her HR elevated to 100-120 with ambulation. Repeat chest x-ray on 11/22 showed worsening pneumonia. She continued to progress well. Echo with preserved ejection fraction. She continued to have slow improvement. Patient seen and examined at bedside. Nausea and vomiting resolved, still does not have her sense of taste or smell back, shortness of breath is unchanged, she is more able to get up and walk around the room and get herself dressed than before. Anxious to go home. Objective - Vital Signs Vital signs: Vital Signs Temp 97.4 F L 11/26/19 15:00 Pulse 100 11/26/19 15:00 Resp 24 11/26/19 15:00 BP 124/78 11/26/19 15:00 Pulse Ox 90 L 11/26/19 15:00 Intake & Output 11/25/19 11/26/19 11/26/19 18:59 06:59 18:59 Intake Total 20 Balance 20 Intake: Oral 20 Other: Voiding Method Toilet # Voids 2 - Exam General: ill appearing, no distress, appears at stated age Derm: warm, dry Head: atraumatic, normocephalic, symmetric Eyes: EOMI, no lid lag, anicteric sclera Mouth: no lip lesion, mucus membranes dry Cardiovascular: S1S2 tachy, no murmur, positive posterior tibial pulse bilateral, Lungs: Ronchi bilateral, no accessory muscle use, 5 word conversational dyspnea Ext: no gross muscle atrophy, no edema, no contractures Neuro: CN II-XI grossly intact, no focal neuro deficits Psych: Alert, oriented, appropriate affect - Labs CBC & Chem 7: 11/24/19 06:50 11/24/19 06:50 Labs: Abnormal Lab Results - Last 24 Hours (Table) 11/25/19 11/26/19 11/26/19 Range/Units 20:08 07:15 16:39 POC Glucose (mg/dL) 133 H 134 H (75-99) mg/dL Lactate Dehydrogenase 639 H (313-618) U/L C-Reactive Protein 10.2 H (<10.0) mg/L Assessment and Plan Assessment: Covid-19 pneumonia with acute hypoxic respiratory failure - ID recs appreciated - Pulm recs appreciated - Completed plaquinil - Zithromax per ID - Zinc - wean o2 as able - cough supressants -change from IV steroids to medrol dose pack 11/24 - bronchodilators - follow CXR COVID gastroenteritis - improved Transaminitis, related to above, improving -Continue to follow liver enzymes Syncope - Tele without significant events - QtC normal - echo with preserved EF Leukocytosis, resolved DVT prophylaxis: Lovenox Discussed with: Patient, nursing Anticipated discharge: in AM Anticipated discharge place: home A total of 25 minutes was spent on the care of this complex patient more than 50% of the time was spent in counseling and care coordination.
[2019-11-26] MEDS: AZITHROMYCIN 500 MG TAB PO SCH (17:19)
--- NOTE | 2019-11-26 18:16 | PN ---
PROGRESS NOTE DATE OF SERVICE: 11/26/2019 REASON FOR FOLLOWUP: Pneumonia. INTERVAL HISTORY: The patient is currently afebrile. She is breathing comfortably on room air, still have some dry hacking cough but not bringing up any sputum. No chest pain. No abdominal pain. No diarrhea. PHYSICAL EXAMINATION: Blood pressure 125/67, pulse of 86, temperature 98.1. She is 92% on room air. General description: The patient is a middle-aged female up in the chair in no distress. Respiratory system: Unlabored breathing. Decreased intensity breath sounds. No wheeze. HEART: S1, S2. Regular rate and rhythm. LABS: The patient did have chest x-ray this morning which did show improved aeration in both lungs. DIAGNOSTIC IMPRESSION AND PLAN: Patient with acute COVID-19 pneumonia. The patient has completed her Plaquenil therapy. Currently on zinc and continue and continue supportive care. MMODL / IJN: [id number] / MTDD
[2019-11-26 20:36] LABS: Glucose,Whole Blood 157 mg/dL (75-99)
[2019-11-27] MEDS: ALBUTEROL HFA INHALER INHALATION SCH ×3 (04:00→11:24)
[2019-11-27 07:11] LABS: Glucose,Whole Blood 75 mg/dL (75-99)
[2019-11-27] MEDS: INSULIN ASPART (NovoLOG) 100 UNIT/ML VIAL SQ SCH ×2 (07:12→13:37)
[2019-11-27] MEDS: BENZONATATE 100 MG CAP PO SCH (08:37)
[2019-11-27] MEDS: ZINC SULFATE 220 MG CAP PO SCH (08:37)
[2019-11-27] MEDS: ENOXAPARIN 40 MG/0.4 ML SYRINGE SQ SCH (08:37)
[2019-11-27] MEDS: methylPREDNISolone 4 MG TAB TAPER PO SCH (08:38)
--- NOTE | 2019-11-27 11:42 | P.PN ---
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 Patient lives in [place], and on 11/07/2019 she presented to the emergency department with complaints of persistent cough, shortness of breath. She denies any overt chills, sweats, dyspnea is exertional and at rest. Patient has no known history of hypertension, heart or chronic lung disease, she is a nonsmoker. No other major medical issues except for fibromyalgia. Does report a pulse ox in the high 80s at around 88% at home. She was placed on supplemental oxygen by the paramedics on the way to the hospital. She reports nausea and vomiting. She reports an episode of syncope at home. Her blood pressure was 90/50 on arrival, she was given a small amount of IV fluid bolus, to which she responded well with improvement in her blood pressure. Chest x-ray showed mild patchy and lower lung infiltrates, left greater than right. Her lab work on admission showed unremarkable CBC, no signs of leukocytosis, or lymphocytosis, hemoglobin was 13.2, with blood cell count is 4.6, d-dimer was 0.72, sodium was 1:30, potassium 3.9, chloride is 95, CO2 is 26, BUN is 11, creatinine 0.85. Ferritin level was 229, AST was 76, ALT was 42, alkaline phosphatase was 69, LDH was 669, CRP was 19, Protonix and was 0.06. She was started on combination of Zithromax, Plaquenil, zinc and IV steroids. Zosyn was added to antibiotic coverage by the attending physician for possibility of secondary bacterial pneumonia as the patient has been coughing up some yellow sputum. Blood culture has shown no growth, today's chest x-ray showed perihilar and basilar mixed infiltrates persist is without significant interval change. Patient is awake and alert, she is currently on 2 L of oxygen her pulse ox is 92-94%, she still has a persistent cough, respirations are nonlabored, she has been afebrile. Follow-up d-dimer was drawn and was less than 0.17, ferritin is not elevated at 254, and LDH is 837. Pro-calcitonin was negative on admission and 0.06. Patient's daughter is an ICU nurse at this hospital, and we were requested to see this patient in evaluation for Covid 19 related pneumonia On 11/22/2019 patient seen in follow-up on a general medical floor. She is still coughing, still has some exertional dyspnea, she is on 2 L of oxygen with a pulse ox of 90-92%, she is afebrile. Blood and sputum cultures have shown no growth so far, hemodynamically patient remains stable. Today's labs have been reviewed, with blood cell count is improved, and is up to 12.2, hemoglobin is 13.3, d-dimer was negative at less than 0.17, electrolytes and renal profile were unremarkable, AST is improved and is down to 53, ALT is relatively stable, slightly up to 49. LDH is up to 934, and CRP is down to 12.6, pro-calcitonin level was negative at 0.6. Hemodynamically patient is stable, no altered mentation. Echocardiogram was done showing EF between 55-60% trace mitral regurg, mild tricuspid regurg, mild pulmonary hypertension with right-sided pres sures of 39 mmHg. There was trivial amount of pericardial effusion. Patient is on oral Zithromax, IV steroids, she has completed her Plaquenil. On 11/23/2019 patient seen in follow-up on the general medical floor, she still has a persistent cough, and she is very nauseous, and has been vomiting. She is currently on 2 L of oxygen and her pulse ox is 94-97%, she has been afebrile, no worsening dyspnea. Today's labs have been reviewed, CBC is within normal limits, electrolytes and renal profile are unremarkable, AST and ALT are improving, at 37 and 44 respectively, alkaline phosphatase is within normal limits, pro-calcitonin was negative, and patient is currently on oral Zithromax, IV steroids, zinc for treatment of Covid 19 infection, she has completed her Plaquenil On 11/24/2019 patient seen in follow-up on general medical floor, she still having the persistent cough, persistent exertional dyspnea, her pulse ox is only 90% on 2 L, vital signs are stable, she's been afebrile. Today's labs have been reviewed, CBC is within normal limits, d-dimer is within normal limits at 0.41, sodium is 134, potassium 3.9, CO2 32, BUN is 20, creatinine 0.67, LDH is 607, CRP is 5.2. Blood and sputum cultures are negative. Continues on azithromycin, IV steroids. She is on Zofran and Tigan for nausea. On 11/25/2019 patient seen in follow-up on general medical floor, she is improving, although still has quite significant exertional dyspnea, fatigue, but nausea and vomiting have improved, oxygenation has improved, patient is satting 97% on 2 L. Normal chest x-rays today, which at her follow-up inflammatory markers yesterday, d-dimer was within normal limits at 0.41, LDH is down to 607, and CRP is 5.2, patient has been afebrile, she remains on IV Solu-Medrol at 40 mg daily, she has completed her treatment with Plaquenil, remains on azithromycin, overall clinically improving The patient is seen today 11/26/2019 in follow-up on the regular medical floor. She is awake and alert in no acute distress. She is breathing easier today compared to yesterday. Still with some dyspnea on exertion. Still with some dry cough. Oxygen saturations in the 80s on room air with activity. Recovered into the 90s on 2 L of nasal cannula. She's been afebrile. Hemodynamically stable. Blood cultures reveal no growth. Sputum culture reveals no growth. LDH 639. C-reactive protein 10.2. Continued on azithromycin. IV Solu-Medrol. Promethazine. Chest x-ray shows improved aeration bilaterally. The patient is seen today 11/27/2019 in follow-up on the regular medical floor. She is currently sitting up in a chair at the bedside. Awake and alert in no acute distress. Minimal cough. Knee shortness of breath. She did drop to 88% on room air. She is maintaining O2 saturations in the 90s on 2 L/m per nasal cannula. She's been afebrile. Hemodynamically stable. Blood culture reveals no growth. Sputum culture reveals no growth. Blood glucose 75. Objective - Vital Signs Vital signs: Vital Signs Temp 98.1 F 11/27/19 07:38 Pulse 92 11/27/19 07:38 Resp 20 11/27/19 07:39 BP 121/71 11/27/19 07:38 Pulse Ox 92 L 11/27/19 07:39 Intake & Output 11/26/19 11/27/19 11/27/19 18:59 06:59 18:59 Intake Total 240 296 Balance 240 296 Weight 77.564 kg Intake: Oral 240 296 Other: Voiding Method Toilet # Voids 1 1 - Exam GENERAL EXAM: Alert, active, very pleasant 59-year-old female patient, on 2 L nasal cannula, comfortable in no apparent distress. HEAD: Normocephalic. EYES: Normal reaction of pupils, equal size. NOSE: Clear with pink turbinates. THROAT: No erythema or exudates. NECK: No masses, no JVD. CHEST: No chest wall deformity. LUNGS: Equal air entry with few scattered rhonchi. CVS: S1 and S2 normal with no audible murmur, regular rhythm. ABDOMEN: No hepatosplenomegaly, normal bowel sounds, no guarding or rigidity. SPINE: No scoliosis or deformity SKIN: No rashes CENTRAL NERVOUS SYSTEM: No focal deficits, tone is normal in all 4 extremities. EXTREMITIES: There is no peripheral edema. No clubbing, no cyanosis. Peripheral pulses are intact. - Labs CBC & Chem 7: 11/24/19 06:50 11/24/19 06:50 Labs: Abnormal Lab Results - Last 24 Hours (Table) 11/26/19 11/26/19 Range/Units 16:39 20:15 POC Glucose (mg/dL) 134 H 157 H (75-99) mg/dL Assessment and Plan Assessment: #1. Acute hypoxic respiratory failure related to COVID19 related pneumonia, patient developed symptoms of cough or shortness of breath on 11/12/2019, she has tested positive for COVID 19 on 11/15/2019, and presented to the hospital on 11/17/2019 with complaints of shortness of breath, cough, nausea vomiting and syncopal episode. #2. A brief syncopal episode at home likely related to orthostatic hypotension, secondary to nausea and vomiting, and possibility of vasovagal episode #3. Borderline hypotension on admission, related to hypovolemia secondary to nausea and vomiting, improved with IV hydration #4. Mildly elevated inflammatory markers including LDH and CRP, related to Covid 19 infection #5. Mildly elevated d-dimer, normalized #6. History of fibromyalgia #7. GERD/reflux #8. Anxiety #9. Never smoker Plan: The patient was seen and evaluated by Dr. Oconnell She is cleared for discharge from the pulmonary standpoint. Home oxygen until recovered Follow closely with her PCP I, the cosigning physician, performed a history & physical examination of the patient. Lungs sounds with few scattered rhonchi bilaterally. Maintaining good O2 saturations in the 90s on 2 L/m per nasal cannula. I discussed the assessment and plan of care with my nurse practitioner, Dianna Pollock. I attest to the above note as dictated by her.
[2019-11-27 12:02] LABS: Glucose,Whole Blood 115 mg/dL (75-99)
[2019-11-27 12:18] VITALS: BP 99/60; PULSE 84; RESP 18; TEMP 97.7
[2019-11-27] MEDS ORDERED: FLUCONAZOLE 150 MG TAB PO STA (12:34)
--- NOTE | 2019-11-27 17:26 | P.DS ---
Providers Date of admission: 11/17/19 14:55 Expected date of discharge: 11/27/19 Attending physician: Esme Albert DO Consults: 11/17/19 14:54 Consult Physician Routine Consulting Provider: Gina Decker Consult Reason/Comments: Covid-19 pneumonia Do you want consulting provider notified?: Yes 11/19/19 09:15 Consult Physician Urgent Consulting Provider: Costa Oconnell Consult Reason/Comments: covid pneumonia Do you want consulting provider notified?: Yes Primary care physician: Amaury Cox Hospital Course: Discharge Diagnosis: Covid-19 pneumonia with acute hypoxic respiratory failure COVID gastroenteritis Transaminitis, related to above, improving Syncope Leukocytosis Hospital Course: Patient is a 59-year-old -Greek female with a history of fibromyalgia, GERD, and anxiety who presented to the emergency department with complaints of coughing and shortness of breath. 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 On admission she was found have bilateral pneumonia. Infectious disease was consulted and she was started on Zithromax, Plaquenil, IV steroids, and zinc. She was also seen by pulmonary. Initial laboratory analysis had showed a d-dimer of 0.72 which had normalized by 11/19, LDH is 669 which has been elevating, CRP of 19 which back to 21.4 and then normalized at 6.5. Liver enzymes mildly elevated but have been down trending. Ferritin of 254. She had some worsening of her chest x-ray on 11/19 with worsening left-sided infiltrate and Zosyn was added and then removed by pulmonary. On 11/21 her HR elevated to 100-120 with ambulation. Repeat chest x-ray on 11/22 showed worsening pneumonia. She continued to progress well. Echo with preserved ejection fraction. She continued to have slow improvement. She completed zithromax and Hydroxychloriquine. She will need home O2 and she was 88% on room air the morning of discharge. She will follow with her PCP on discharge. She was given instructions on self isolation and when to come out, she was written to be off work for 1 additional week as she is requiring oxygen. It was stressed that she return to the ED with any worsening of her symptoms. Patient seen and examined at bedside. Feeling okay today. Cough and breathing are somewhat better than yesterday and stable. Anxious to go home. We discussed plan of when to return to the emergency department. I discussed with her continuing to take vitamin C and zinc at home as well as adding a daily baby aspirin. She was also given a cough suppressant. We have made arrangements for her to have home oxygen. Vital signs reviewed and stable. General: non toxic, no distress, appears at stated age Derm: warm, dry Head: atraumatic, normocephalic, symmetric Eyes: EOMI, no lid lag, anicteric sclera Mouth: no lip lesion, mucus membranes moist Cardiovascular: S1S2 reg, no murmur, positive posterior tibial pulse bilateral, Lungs: Coarse breath sounds bilateral, no accessory muscle use, 5 word conversational dyspnea Abdominal: soft, nontender to palpation, no guarding, no appreciable organomegaly Ext: no gross muscle atrophy, no edema, no contractures Neuro: CN II-XI grossly intact, no focal neuro deficits Psych: Alert, oriented, appropriate affect A total of 35 minutes of time were spent preparing this complex discharge summary . Patient Condition at Discharge: Stable Plan - Discharge Summary Discharge Rx Participant: No New Discharge Prescriptions: New Aspirin [Adult Low Dose Aspirin EC] 81 mg PO DAILY #30 tablet. methylPREDNISolone Dose Pack [Medrol Dose Pack] 20 mg PO DAILY #1 pack Zinc Sulfate [Orazinc] 220 mg PO DAILY #30 cap Benzonatate [Tessalon Perles] 100 mg PO TID #60 cap Albuterol Inhaler [Ventolin Hfa Inhaler] 2 puff INHALATION RT-Q4H #1 inhaler Continue Acetaminophen Tab [Tylenol] 650 mg PO Q4H PRN PRN Reason: Fever And/ Or Pain Ondansetron HCl [Zofran] 4 mg PO TID PRN PRN Reason: Nausea guaiFENesin SYRUP 100MG/5ML [Robitussin] 200 mg PO Q6H PRN PRN Reason: Cough Discharge Medication List Acetaminophen Tab [Tylenol] 650 mg PO Q4H PRN 11/17/19 [History] Ondansetron HCl [Zofran] 4 mg PO TID PRN 11/17/19 [History] guaiFENesin SYRUP 100MG/5ML [Robitussin] 200 mg PO Q6H PRN 11/17/19 [History] Albuterol Inhaler [Ventolin Hfa Inhaler] 2 puff INHALATION RT-Q4H #1 inhaler 11/27/19 [Rx] Aspirin [Adult Low Dose Aspirin EC] 81 mg PO DAILY #30 tablet. 11/27/19 [Rx] Benzonatate [Tessalon Perles] 100 mg PO TID #60 cap 11/27/19 [Rx] Zinc Sulfate [Orazinc] 220 mg PO DAILY #30 cap 11/27/19 [Rx] methylPREDNISolone Dose Pack [Medrol Dose Pack] 20 mg PO DAILY #1 pack 11/27/19 [Rx] Follow up Appointment(s)/Referral(s): [facility] [NON-STAFF] - As Needed Amaury Cox MD [Primary Care Provider] - 1-2 days Activity/Diet/Wound Care/Special Instructions: Activity: as tolerated Diet: regular Covid dc instructions given. Patient set up with home oxygen. Discharge/Stand Alone Forms: Work/Release Restrictions Form Discharge Disposition: HOME SELF-CARE
== END 2019-11-27 14:15 | disposition home or self-care (01) | DRG 177 ==
LOC: EC 12:55 → 4SSUR 14:55
PROVIDERS: ADMIT Internal Medicine; ATTEND Internal Medicine
DX: U07.1 COVID-19 (principal); J12.89 Other viral pneumonia; J96.01 Acute respiratory failure with hypoxia; J15.9 Unspecified bacterial pneumonia; A08.39 Other viral enteritis; I27.20 Pulmonary hypertension, unspecified; I95.1 Orthostatic hypotension; E86.1 Hypovolemia; E87.6 Hypokalemia; F41.9 Anxiety disorder, unspecified; K21.9 Gastro-esophageal reflux disease without esophagitis; M79.7 Fibromyalgia; T38.0X5A Adverse effect of glucocorticoids and synthetic analogues, initial encounter; D72.829 Elevated white blood cell count, unspecified; R74.0 Nonspecific elevation of levels of transaminase and lactic acid dehydrogenase [LDH]; I08.1 Rheumatic disorders of both mitral and tricuspid valves; Z88.5 Allergy status to narcotic agent; Z82.3 Family history of stroke; Z79.82 Long term (current) use of aspirin; Z79.899 Other long term (current) drug therapy; Z98.890 Other specified postprocedural states
CPT/HCPCS: 36415; 71045; 80048; 80053; 82728; 83605; 83615; 83735; 84145; 85025; 85379; 85610; 85730; 86140; 87040; 87070; 87205; 93005; 93306; 94640; 96374; 99285